=== PATIENT | female | born 1965 | race Caucasian/White ===

== ENCOUNTER 2016-10-10 10:02 | Emergency (ER) | payer BC ==
[~2016-10-10] VITALS: Ht 167.6 cm; Wt 136.2 kg
[~2016-10-10 10:02] MED LIST: ASPI81TA28 PO; ATOR-26 PO; BUPR75TA8 PO; CHOL1000 PO; CYAN10004 PO; FLUT110A INH; HYDR1LOT6 TOP; ISOS60TA25 PO; LISI5TAB PO; LPR25 PO; MAGNTAB4 PO; PANT40TA PO
[2016-10-10 10:21] VITALS: TEMP 37; Ht 167.6 cm; Wt 136.2 kg
--- NOTE | 2016-10-10 11:11 | DIAGNOSTIC IMAGING REPORT ---
LEFT WRIST 5 VIEWS HISTORY: LEFT WRIST PAIN COMPARISON: None. FINDINGS: There is no fracture or dislocation. Mild soft tissue swelling. The scaphoid appears intact. Moderate degenerative changes at the first carpometacarpal joint. IMPRESSION: No fractures. Electronically signed by: Macario Ortiz M.D. 10/10/2016 11:09 AM Dictated Date/Time: 10/10/2016 11:07 AM
[2016-10-10] MEDS ORDERED: FLVHFA220 INH (11:22)
[2016-10-10] MEDS ORDERED: ALBU18002 INH (11:22)
[2016-10-10 12:03] VITALS: BP 128/77; PULSE 70; O2SAT 98
--- NOTE | 2016-10-10 13:16 | EMERGENCY ROOM VISIT NOTE ---
History First contact with patient: 10:44 Chief Complaint: HAND PAIN/INJURY Stated Complaint: LEFT HAND POSSIBLY BROKEN History of Present Illness The patient is a 50 year old female who presents to the Emergency Room with complaints of left wrist pain. The patient reports that she picked up a milk jug a few weeks ago, and has had discomfort since that time. She reports pain along the outer aspect of the wrist. She reports that the pain is now worse. She denies any pain extending into the forearm or hand. Denies any paresthesias or numbness of the hand or fingers. The patient is left-hand dominant, and rates her discomfort an 8 out of 10. Has not contacted her PCP for her current condition. Review of Systems 10 system review was performed and was negative except for pertinent positives and negatives as indicated in history of present illness Past Medical/Surgical History Medical Problems: (1) Asthma, Unspecified (2) Calculus Of Kidney (3) Cholelithiasis Nos (4) Coronary Atherosclerosis Of [place] Coronary Vessel (5) Esophageal Reflux (6) Hyperlipidemia, Unspecified (7) Hypertension Nos (8) Latex Allergy Status (9) Morbid Obesity (10) Obstructive Sleep Apnea (Adult) (Pediatric) (11) Old Myocardial Infarct Surgical Problems: (1) History of cholecystectomy Family History Diabetes mellitus Hypertension Social History Smoking Status: Never Smoker Alcohol Use: none Drug Use: none Marital Status: Housing Status: lives with family Occupation Status: employed Current/Historical Medications Scheduled Albuterol Sulfate (Proair Respiclick), 1 PUFF INH DAILY Aspirin (Aspirin Ec), 81 MG PO DAILY Atorvastatin (Lipitor), 80 MG PO DAILY Bupropion Hcl (Wellbutrin), 75 MG PO DAILY Cholecalciferol (Vitamin D3), 1 TAB PO DAILY Cyanocobalamin (Vitamin B-12 1000 Mcg), 1 TAB PO DAILY Fluticasone Propionate (Flovent Hfa), 1 PUFFS INH BID Lisinopril (Prinivil), 2.5 MG PO DAILY Metoprolol Tartrate (Lopressor), 25 MG PO BID Pantoprazole (Protonix), 40 MG PO DAILY Allergies Coded Allergies: Latex1 -Allergic Contact Dermititis (Unverified Allergy, Unknown, ITCHINESS, 10/10/16) Prochlorperazine (Verified Allergy, Unknown, muscle spasms, 10/10/16) Amoxicillin (Verified Adverse Reaction, Intermediate, SEVERE YEAST INFECTIONS, 10/10/16) Physical Exam Vital Signs Date Time Temp Pulse Resp B/P Pulse Ox O2 Delivery O2 Flow Rate FiO2 10/10/16 12:03 70 18 128/77 98 10/10/16 10:21 37.0 66 18 135/81 97 Room Air Physical Exam CONSTITUTIONAL: Morbidly obese female, alert and oriented X 3 with positive affect. HEENT: Normocephalic, atraumatic. Pupils equal, round and reactive. NECK: Full active range of motion without discomfort. MUSCULOSKELETAL: Examination of the left wrist does not show any obvious edema, ecchymosis or erythema. She is tender over the ulnar aspect of the wrist. Negative anatomic snuffbox tenderness. No focal tenderness over the distal radius or ulna. Flexion and extension of the fingers does not worsen her discomfort. Capillary refill is less than 2 seconds. INTEGUMENTARY: No rash or other significant dermatologic conditions noted. NEUROLOGIC: Left hand and fingers are sensory intact. Medical Decision & Procedures ER Provider Diagnostic Interpretation: My interpretation of left wrist x-rays does not show any acute fractures or dislocations. Moderate first CMC joint osteoarthritic changes are noted. Radiologist report is as follows: LEFT WRIST 5 VIEWS HISTORY: LEFT WRIST PAIN COMPARISON: None. FINDINGS: There is no fracture or dislocation. Mild soft tissue swelling. The scaphoid appears intact. Moderate degenerative changes at the first carpometacarpal joint. IMPRESSION: No fractures. ED Course Patient history and physical exam were performed. Nurse's notes were reviewed. The patient refused any analgesics while in the emergency department. X-rays of the left wrist were normal. A wrist lacer was applied. The patient was encouraged to intermittently apply ice and elevate the wrist for swelling and pain. Tylenol as needed for pain. The patient refused any prescription analgesics. She was instructed to follow-up with orthopedics for further reevaluation and management. The patient was happy with plan of care, voiced understanding of all discharge instructions, and denied any significant pain at the conclusion of my exam. Medical Decision Impression Primary Impression: Left wrist sprain Departure Information Referrals Ame Ly (PCP) Patient Instructions [facility]
[2017-03-02] MEDS ORDERED: CYCL10TA6 PO (10:53)
[2017-03-02] MEDS ORDERED: VENL37.593 PO (10:53)
[2017-03-02] MEDS ORDERED: CHOL2000 PO (10:53)
== END 2016-10-10 12:04 | disposition home or self-care (01) ==
LOC: C.EDB 10:03 → C.EDD 12:04
DX: S63.502A Unspecified sprain of left wrist, initial encounter (principal); X50.0XXA Overexertion from strenuous movement or load, initial encounter; J45.909 Unspecified asthma, uncomplicated; I25.10 Atherosclerotic heart disease of native coronary artery without angina pectoris; K21.9 Gastro-esophageal reflux disease without esophagitis; E78.5 Hyperlipidemia, unspecified; I10 Essential (primary) hypertension; G47.33 Obstructive sleep apnea (adult) (pediatric); I25.2 Old myocardial infarction; Z90.49 Acquired absence of other specified parts of digestive tract; Z79.82 Long term (current) use of aspirin

== ENCOUNTER → 2016-12-29 | Outpatient (CLI) | payer BC ==
[~2016-12-29] MED LIST changes: +ALBU18002 INH; +CHOL2000 PO; +CYCL10TA6 PO; +EFFSR75 PO; -FLUT110A INH; +FLVHFA110 INH; +FLVHFA220 INH; +FLX10 PO; -HYDR1LOT6 TOP; -ISOS60TA25 PO; +LSN25 PO; -MAGNTAB4 PO; +OXYC-57 PO; +VENL37.593 PO
--- NOTE | 2016-12-29 10:26 | DIAGNOSTIC IMAGING REPORT ---
LEFT ANKLE MIN 3 VIEWS ROUTINE CLINICAL HISTORY: Left ankle pain. TRAUMA COMPARISON: None. DISCUSSION: No fractures or dislocations are visualized. There are minor degenerative changes present. There is calcaneal spurring. IMPRESSION: No acute fractures or dislocations identified. Electronically signed by: Nilesh Beltran M.D. 12/29/2016 10:24 AM Dictated Date/Time: 12/29/2016 10:23 AM
--- NOTE | 2016-12-29 11:29 | DIAGNOSTIC IMAGING REPORT ---
LEFT FOOT 3 VIEWS HISTORY: LEFT ANKLE PAIN COMPARISON: None. FINDINGS: There is no fracture or dislocation. Soft tissues are unremarkable. No radiopaque foreign bodies. Plantar and posterior calcaneal spurs. Mild degenerative changes. IMPRESSION: No fractures. Electronically signed by: Macario Ortiz M.D. 12/29/2016 11:28 AM Dictated Date/Time: 12/29/2016 11:27 AM
== END | disposition home or self-care (01) ==
LOC: C.RAD 09:42
PROVIDERS: ATTEND Nurse Practitioner
DX: M25.572 Pain in left ankle and joints of left foot (principal)

== ENCOUNTER → 2017-03-04 | Outpatient (CLI) | payer BC ==
[~2017-03-04] MED LIST changes: -BUPR75TA8 PO; -CHOL1000 PO; -EFFSR75 PO; -FLVHFA110 INH; -FLX10 PO; -LSN25 PO; -OXYC-57 PO
--- NOTE | 2017-03-04 15:47 | DIAGNOSTIC IMAGING REPORT ---
LUMBAR SPINE MIN 4 VIEWS CLINICAL HISTORY: 51 years-old Female presenting with LOW BACK PAIN. TECHNIQUE: Frontal, lateral, bilateral oblique views of the lumbar spine were obtained. COMPARISON: None. FINDINGS: Slight loss of anterior vertebral body height at T11, which may be within the range of normal. Remaining vertebral bodies demonstrate normal height and alignment. No acute fracture or subluxation the limitations of radiography. Minimal osteophytosis noted at L2-3. Mild scoliotic curvature at the thoracolumbar junction. No gross evidence of osseous neural foraminal narrowing. Normal bowel gas pattern. IMPRESSION: 1. No acute osseous injury of the lumbar spine within the limitations of radiography. 2. Minimal degenerative change at L2-3 and mild scoliotic curvature. Electronically signed by: Colten Lerner M.D. 03/04/2017 3:46 PM Dictated Date/Time: 03/04/2017 3:42 PM
== END | disposition home or self-care (01) ==
LOC: C.RDSM 15:26
PROVIDERS: ATTEND Family Medicine
DX: M54.5 Low back pain (principal)

== ENCOUNTER → 2017-03-27 | Outpatient (CLI) | payer BC ==
[2017-03-27 10:04] LABS: HEMATOCRIT 42.4 % (37-47); MEAN CELL VOLUME 89.8 fL (80-100); MEAN CORPUSCULAR HEMOGLOBIN 29.2 pg (25-34); MEAN CORPUSCULAR HGB CONC 32.5 g/dl (32-36); MEAN PLATELET VOLUME 9.9 fL (7.4-10.4); PLATELET COUNT 275 K/uL (130-400); RED BLOOD COUNT 4.72 M/uL (4.2-5.4); WHITE BLOOD COUNT 6.25 K/uL (4.8-10.8)
[2017-03-27 10:34] LABS: CHOLESTEROL/HDL RATIO 1.9
[2017-03-27 10:34] LABS: BLOOD UREA NITROGEN 14 mg/dl (7-18); BUN/CREATININE RATIO 16.2 (10-20); CALCIUM 9.1 mg/dl (8.5-10.1); CARBON DIOXIDE 31 mmol/L (21-32); CHLORIDE 106 mmol/L (98-107); CREATININE 0.86 mg/dl (0.60-1.20); GLUCOSE 91 mg/dl (70-99); POTASSIUM 4.6 mmol/L (3.5-5.1); SODIUM 140 mmol/L (136-145)
[2017-03-27 10:44] LABS: THYROID STIMULATING HORMONE 0.664 uIu/ml (0.300-4.500)
== END | disposition home or self-care (01) ==
LOC: C.LAB 09:06
PROVIDERS: ATTEND Internal Medicine Cardiovascular Disease
DX: E78.5 Hyperlipidemia, unspecified (principal); Z13.220 Encounter for screening for lipoid disorders; R42 Dizziness and giddiness

== ENCOUNTER 2017-07-10 17:38 | Emergency (ER) | payer BC ==
[~2017-07-10] VITALS: Ht 167.6 cm; Wt 134.4 kg
[2017-07-10 17:45] VITALS: Ht 167.6 cm; Wt 134.4 kg
[2017-07-10] MEDS ORDERED: OXYCODONE/ACETAMINOPHEN 5-325 TAB PO STA (17:54)
[2017-07-10] MEDS ORDERED: ONDANSETRON 4MG OD TAB PO ONE (18:00)
[2017-07-10] MEDS ORDERED: EFFSR75 PO (18:36)
[2017-07-10] MEDS ORDERED: FLVHFA110 INH (18:36)
[2017-07-10] MEDS ORDERED: FLX10 PO (18:36)
[2017-07-10] MEDS ORDERED: LSN25 PO (18:36)
[2017-07-10] MEDS ORDERED: OXYC-57 PO (18:45)
[2017-07-10 18:58] VITALS: BP 169/59; PULSE 58; TEMP 36.9; O2SAT 96
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
== END 2017-07-10 19:11 | disposition home or self-care (01) ==
LOC: C.EDB 17:40 → C.EDD 19:11
DX: T23.001A Burn of unspecified degree of right hand, unspecified site, initial encounter (principal); X19.XXXA Contact with other heat and hot substances, initial encounter; I10 Essential (primary) hypertension; E78.5 Hyperlipidemia, unspecified; K21.9 Gastro-esophageal reflux disease without esophagitis; I25.2 Old myocardial infarction; I25.10 Atherosclerotic heart disease of native coronary artery without angina pectoris; J45.909 Unspecified asthma, uncomplicated; G47.33 Obstructive sleep apnea (adult) (pediatric); Z87.442 Personal history of urinary calculi; Z90.49 Acquired absence of other specified parts of digestive tract; Z91.040 Latex allergy status; Z88.1 Allergy status to other antibiotic agents; Z88.8 Allergy status to other drugs, medicaments and biological substances; Z79.82 Long term (current) use of aspirin; Z79.899 Other long term (current) drug therapy

== ENCOUNTER → 2017-09-23 | Day surgery (SDC) | payer BC ==
[2017-09-07 12:10] VITALS: Ht 167.6 cm; Wt 133.6 kg
[~2017-09-23] VITALS: Ht 167.6 cm; Wt 133.6 kg
[~2017-09-23] MED LIST changes: -ATOR-26 PO; -CYCL10TA6 PO; +EFFSR75 PO; +FLVHFA110 INH; -FLVHFA220 INH; +FLX10 PO; +LIDOCAINE HCL 2% 2 ML VIAL (20MG/ML) ONE; +LISI-729 PO; -LISI5TAB PO; +MULT-920 PO; -PANT40TA PO; +PROPOFOL IV EMULSION 10 MG/ML 20 ML VIAL IV ONE; +SODIUM CHLORIDE 0.9% 500ML 500 ML IV ONE; +VALA1TAB2 PO; -VENL37.593 PO
--- NOTE | 2017-09-23 15:15 | GI REPORT ---
Procedure Date: 09/23/2017 2:02 PM Procedure: Colonoscopy Indications: Family history of colonic polyps in a first-degree relative Medicines: Propofol per Anesthesia Complications: No immediate complications. Estimated blood loss: Minimal. Estimated Blood Loss: Estimated blood loss was minimal. Procedure: Pre-Anesthesia Assessment: - Prior to the procedure, a History and Physical was performed, and patient medications and allergies were reviewed. The patient's tolerance of previous anesthesia was also reviewed. The risks and benefits of the procedure and the sedation options and risks were discussed with the patient. All questions were answered, and informed consent was obtained. Prior Anticoagulants: The patient has taken no previous anticoagulant or antiplatelet agents. ASA Grade Assessment: III - A patient with severe systemic disease. After reviewing the risks and benefits, the patient was deemed in satisfactory condition to undergo the procedure. After I obtained informed consent, the scope was passed under direct vision. Throughout the procedure, the patient's blood pressure, pulse, and oxygen saturations were monitored continuously. The scope was introduced through the anus and advanced to the terminal ileum, with identification of the appendiceal orifice and IC valve. The colonoscopy was performed without difficulty. The patient tolerated the procedure well. The quality of the bowel preparation was good. Findings: The perianal and digital rectal examinations were normal. Pertinent negatives include normal sphincter tone, no palpable rectal lesions and no anal lesion or abnormality was detected. A 1 mm polyp was found in the hepatic flexure. The polyp was sessile. The polyp was removed with a cold biopsy forceps. Resection and retrieval were complete. Estimated blood loss was minimal. Verification of patient identification for the specimen was done by the physician and r&d lab technician using the patient's name and medical record number. A 3 mm polyp was found in the distal transverse colon. The polyp was sessile. The polyp was removed with a cold biopsy forceps. Resection and retrieval were complete. Estimated blood loss was minimal. Verification of patient identification for the specimen was done by the physician and r&d lab technician using the patient's name and medical record number. The exam was otherwise without abnormality. The retroflexed view of the distal rectum and anal verge was normal and showed no anal or rectal abnormalities. The terminal ileum appeared normal. The exam was otherwise without abnormality. Impression: - One 1 mm polyp at the hepatic flexure, removed with a cold biopsy forceps. Resected and retrieved. - One 3 mm polyp in the distal transverse colon, removed with a cold biopsy forceps. Resected and retrieved. - The examination was otherwise normal. - The distal rectum and anal verge are normal on retroflexion view. - The examined portion of the ileum was normal. - The examination was otherwise normal. Recommendation: - Discharge patient to home (ambulatory). - Resume regular diet. - Continue present medications. - Await pathology results. - Repeat colonoscopy for surveillance based on pathology results. - Return to referring physician as previously scheduled. MD Lionel Ramirez MD 09/23/2017 3:14:28 PM This report has been signed electronically. Note Initiated On: 09/23/2017 2:02 PM I attest to the content of the Intraoperative Record and orders documented therein, exceptions below
--- NOTE | 2017-09-23 15:23 | Endo History and Physical ---
History & Physical Date of Service: Sep 23, 2017. Chief Complaint: screening Referring Physician: Sydni DEL TORO History of Present Illness colon- screen + FH polyps Past Medical History Reflux, Sleep Apnea, Hypertension, Depression, [place] Past Surgical History Hx Cardiac Surgery: Yes (HEART CATH, NO STENTS) Hx Internal Defibrillator: No Hx Pacemaker: No Hx Abdominal Surgery: Yes (DEDRICK, (SPINAL)) Hx of Implantable Prosthesis: No Hx Post-Op Nausea and Vomiting: Yes (S/P DEDRICK) Hx Cancer Surgery: No Hx Thoracic Surgery: No Hx Orthopedic: No Hx Urinary Tract Surgery: No Family History None Social History Smoking Status: Never Smoker Hx Substance Use: No Hx Alcohol Use: No Allergies Coded Allergies: Latex1 -Allergic Contact Dermititis (Verified Allergy, Unknown, ITCHINESS , 09/23/17) Metronidazole (Verified Allergy, Unknown, PT DOESN'T REMEMBER REACTION, ) Prochlorperazine (Verified Allergy, Unknown, muscle spasms, 09/07/17) Amoxicillin (Verified Adverse Reaction, Intermediate, SEVERE YEAST INFECTIONS, 09/07/17) Uncoded Allergies: METAL (Adverse Reaction, Unknown, SKIN IRRITATION WITH EXTENDED USE, ) Current Medications Reported Home Medications Medications Dose Route/Sig Max Daily Dose Days Date Category Zestril (Lisinopril) 5 Mg Tab 2.5 Mg PO DAILY 09/23/17 Reported Airborne (Multiple Vitamins W/ Minerals) 1 Tab Tab 2 Tab PO BID 09/07/17 Reported Valtrex (Valacyclovir Hcl) 1 Gm Tab 1,000 Mg PO DAILY 09/07/17 Reported Flovent Hfa (Fluticasone Propionate) 120 Puffs/09351 Mcg Aero 1 Puff INH QAM 07/10/17 Reported Cyclobenzaprine HCl 10 Mg Tab 10 Mg PO BID PRN 07/10/17 Reported Effexor Extended Rel (Venlafaxine Hcl) 75 Mg Capcr 75 Mg PO QAM 07/10/17 Reported Vitamin D3 (Cholecalciferol) 2,000 Unit Cap 2,000 Inter.unit PO QAM 03/02/17 Reported Proair Respiclick (Albuterol Sulfate) 108 Mcg/Act Aer 1 Puff INH Q4H PRN 10/10/16 Reported Vitamin B-12 1000 Mcg (Cyanocobalamin) 1,000 Mcg Tab 5,000 Mcg PO QAM 06/14/15 Reported Lopressor (Metoprolol Tartrate) 25 Mg Tab 25 Mg PO BID 02/02/14 Reported Aspirin Ec (Aspirin) 81 Mg Tab 81 Mg PO QAM 02/02/14 Reported Vital Signs Weight (Kilograms): 133.64 Height (Feet): 5 Height (Inches): 6 Date Time Temp Pulse Resp B/P (MAP) Pulse Ox O2 Delivery O2 Flow Rate FiO2 09/23/17 14:07 36.6 56 20 158/82 (107) 96 Room Air Physical Exam General Appearance: WD/WN, no apparent distress Respiratory/Chest: Auscultation: breath sounds normal Cardiovascular: Heart Auscultation: RRR Abdomen: Bowel Sounds: normal Inspection & Palpation: soft, non-distended, no tenderness, guarding & rebound Assessment and Plan 1) colonoscopy for screening
--- NOTE | 2017-09-23 15:25 | Anesthesiology Progress Note ---
Anesthesia Post Op Note Date & Time Sep 23, 2017 at 15:10 Vital Signs Pain Intensity: 0 Vital Signs Past 12 Hours Date Time Temp Pulse Resp B/P (MAP) Pulse Ox O2 Delivery O2 Flow Rate FiO2 09/23/17 14:07 36.6 56 20 158/82 (107) 96 Room Air Notes Mental Status: alert / awake / arousable, participated in evaluation Pt Amnestic to Procedure: Yes Nausea / Vomiting: adequately controlled Pain: adequately controlled Airway Patency, RR, SpO2: stable & adequate BP & HR: stable & adequate Hydration State: stable & adequate Anesthetic Complications: no major complications apparent
--- NOTE | 2017-09-23 15:25 | Discharge Instructions ---
Endoscopy Patient Instructions Date / Procedure(s) Performed Sep 23, 2017. Colonoscopy Allergy Information Coded Allergies: Latex1 -Allergic Contact Dermititis (Verified Allergy, Unknown, ITCHINESS , 09/23/17) Metronidazole (Verified Allergy, Unknown, PT DOESN'T REMEMBER REACTION, ) Prochlorperazine (Verified Allergy, Unknown, muscle spasms, 09/07/17) Amoxicillin (Verified Adverse Reaction, Intermediate, SEVERE YEAST INFECTIONS, 09/07/17) Uncoded Allergies: METAL (Adverse Reaction, Unknown, SKIN IRRITATION WITH EXTENDED USE, ) Discharge Date / Findings Sep 23, 2017. small polyps removed Medication Instructions Stopped Medication(s): stopped ASA Thursday Restart Stopped Medication(s): Reported Home Medications Medications Dose Route/Sig Max Daily Dose Days Date Category Zestril (Lisinopril) 5 Mg Tab 2.5 Mg PO DAILY 09/23/17 Reported Airborne (Multiple Vitamins W/ Minerals) 1 Tab Tab 2 Tab PO BID 09/07/17 Reported Valtrex (Valacyclovir Hcl) 1 Gm Tab 1,000 Mg PO DAILY 09/07/17 Reported Flovent Hfa (Fluticasone Propionate) 120 Puffs/29496 Mcg Aero 1 Puff INH QAM 07/10/17 Reported Cyclobenzaprine HCl 10 Mg Tab 10 Mg PO BID PRN 07/10/17 Reported Effexor Extended Rel (Venlafaxine Hcl) 75 Mg Capcr 75 Mg PO QAM 07/10/17 Reported Vitamin D3 (Cholecalciferol) 2,000 Unit Cap 2,000 Inter.unit PO QAM 03/02/17 Reported Proair Respiclick (Albuterol Sulfate) 108 Mcg/Act Aer 1 Puff INH Q4H PRN 10/10/16 Reported Vitamin B-12 1000 Mcg (Cyanocobalamin) 1,000 Mcg Tab 5,000 Mcg PO QAM 06/14/15 Reported Lopressor (Metoprolol Tartrate) 25 Mg Tab 25 Mg PO BID 02/02/14 Reported Aspirin Ec (Aspirin) 81 Mg Tab 81 Mg PO QAM 02/02/14 Reported Reported Home Medications Medications Dose Route/Sig Max Daily Dose Days Date Category Zestril (Lisinopril) 5 Mg Tab 2.5 Mg PO DAILY 09/23/17 Reported Airborne (Multiple Vitamins W/ Minerals) 1 Tab Tab 2 Tab PO BID 09/07/17 Reported Valtrex (Valacyclovir Hcl) 1 Gm Tab 1,000 Mg PO DAILY 09/07/17 Reported Flovent Hfa (Fluticasone Propionate) 120 Puffs/46521 Mcg Aero 1 Puff INH QAM 07/10/17 Reported Cyclobenzaprine HCl 10 Mg Tab 10 Mg PO BID PRN 07/10/17 Reported Effexor Extended Rel (Venlafaxine Hcl) 75 Mg Capcr 75 Mg PO QAM 07/10/17 Reported Vitamin D3 (Cholecalciferol) 2,000 Unit Cap 2,000 Inter.unit PO QAM 03/02/17 Reported Proair Respiclick (Albuterol Sulfate) 108 Mcg/Act Aer 1 Puff INH Q4H PRN 10/10/16 Reported Vitamin B-12 1000 Mcg (Cyanocobalamin) 1,000 Mcg Tab 5,000 Mcg PO QAM 06/14/15 Reported Lopressor (Metoprolol Tartrate) 25 Mg Tab 25 Mg PO BID 02/02/14 Reported Aspirin Ec (Aspirin) 81 Mg Tab 81 Mg PO QAM 02/02/14 Reported Provider Instructions Activity Restrictions - No exercising or heavy lifting for 24 hours. - Do not drink alcohol the day of the procedure. - Do not drive a car or operate machinery until the day after the procedure. - Do not make any important decisions or sign important papers in 24 hours after the procedure. Following Day: - Return to full activity which may include returning to work/school. Diet Start your diet with liquids and light foods (jello, soup, juice, toast). Then eat your usual diet if not nauseated. Treatment For Common After Affects For mild abdominal pain, bloating, or excessive gas: - Rest - Eat lightly - Lie on right side Follow-Up Information Follow-up with Sydni DEL TORO as scheduled Anesthesia Information What You Should Know You have had a procedure that required some medicine to reduce anxiety and discomfort. This treatment is called moderate sedation. After receiving the treatment, you may be sleepy, but you will be able to breathe on your own. The effects of the treatment may last for several hours. Follow these instructions along with Activity/Diet recommendations noted above: * Do NOT do anything where dizziness or clumsiness would be dangerous. * Rest quietly at home today, then you can be up and about tomorrow. * Have a responsible person stay with you the rest of today. * You may have had an I.V. today. If so, you may take the dressing off later today. Recommendations Call your doctor if: * Trouble breathing * Continuous vomiting for more than 24 hours * Temperature above 101 degrees * Severe abdominal pain or bloating * Pain not relieved by pain medicine ordered * There is increased drainage or redness from any incision * A large amount of rectal bleeding greater than 2-3 tablespoons. (If you had a polyp/s removed or have hemorrhoids, a small amount of blood - from the rectum is to be expected.) * You have any unanswered questions or concerns. IN THE EVENT OF A SERIOUS EMERGENCY, GO TO THE NEAREST EMERGENCY ROOM Your discharge instructions were prepared by provider Lionel Harris. Patient Instructions Signature Page Ester Farias Patient (or Guardian) Signature/Date: I have read and understand the instructions given to me by my caregivers. Caregiver/RN/Doctor Signature/Date: The above-named patient and/or guardian has received patient instructions on this date. + Original Patient Signature Page (only) stays with chart. Please make copy for patient.
[2017-09-23 15:34] VITALS: BP 135/84; PULSE 55; O2SAT 100
== END | disposition home or self-care (01) ==
LOC: C.GI 13:39
PROVIDERS: ATTEND Internal Medicine Gastroenterology
DX: Z12.11 Encounter for screening for malignant neoplasm of colon (principal); D12.3 Benign neoplasm of transverse colon; Z83.71 Family history of colonic polyps; J45.909 Unspecified asthma, uncomplicated; G47.33 Obstructive sleep apnea (adult) (pediatric); I10 Essential (primary) hypertension; Z91.040 Latex allergy status; F41.9 Anxiety disorder, unspecified; Z88.0 Allergy status to penicillin; Z88.1 Allergy status to other antibiotic agents; Z90.49 Acquired absence of other specified parts of digestive tract; E66.01 Morbid (severe) obesity due to excess calories; Z68.42 Body mass index [BMI] 45.0-49.9, adult; Z79.82 Long term (current) use of aspirin; Z79.899 Other long term (current) drug therapy

== ENCOUNTER 2022-08-26 14:24 | Inpatient (IN) ==
[2022-08-26] MEDS ORDERED: MoRPHine SULFATE 4 MG/ML 1 ML CARP\\VIAL IV STA ×2 (14:47→18:18)
[2022-08-26] MEDS ORDERED: ONDANSETRON INJ 2 MG/ML 2 ML VIAL IV STA (14:47)
[2022-08-26] MEDS ORDERED: SODIUM CHLORIDE 0.9% 1000ML 1,000 ML IV STA (14:47)
--- NOTE | 2022-08-26 15:31 | XRay Report ---
SINGLE VIEW CHEST CLINICAL HISTORY: Atypical chest pain. FINDINGS: An AP, portable, upright chest radiograph is compared to study dated 06/27/2022. The cardiom ediastinal silhouette is unremarkable. The lungs and pleural spaces are clear. No pneumothorax is see n. The bony thorax is grossly intact. IMPRESSION: No active disease in the chest. ACT 112: Negative or not required by law. Electronically signed by: Fernandez Allen M.D. 08/26/2022 3:29 PM
[2022-08-26 15:36] LABS: Basophils # (auto) 0.03 K/uL (0-0.2); Basophils % (auto) 0.3 %; Eosinophils # (auto) 0.03 K/uL (0-0.50); Eosinophils % (auto) 0.3 %; Hematocrit (blood only) 46.4 % (34.1-44.9); Hemoglobin 15.7 g/dl (12.0-16.0); Immature Granulocytes # (auto) 0.03 K/uL (0.00-0.02); Immature Granulocytes % (auto) 0.3 %; Lymphocytes # (auto) 1.25 K/uL (1.2-3.4); Lymphocytes % (auto) 12.6 %; Mean Corpuscular Hemoglobin 29.3 pg (25.0-34.0); Mean Corpuscular Hgb Conc 33.8 g/dL (32.0-36.0); Mean Corpuscular Volume 86.6 fL (80.0-100.0); Mean Platelet Volume 9.1 fL (9.4-12.3); Monocytes # (auto) 0.51 K/uL (0.24-0.82); Monocytes % (auto) 5.2 %; Neutrophils # (auto) 8.04 K/uL (1.4-6.5); Neutrophils % (auto) 81.3 %; Platelet Count 263 K/uL (130-400); RDW Coefficient of Variation 13.5 % (11.5-14.5); RDW Standard Deviation 42.7 fL (36.4-46.3); Red Blood Count 5.36 M/uL (3.93-5.22); White Blood Count 9.89 K/ul (4.8-10.8)
[2022-08-26 16:02] LABS: Troponin I High Sensitivity 4.6 pg/ml (0-14)
[2022-08-26 16:06] LABS: Albumin Globulin Ratio 1.1 (0.9-2); Albumin Level 3.9 gm/dl (3.4-5.0); BUN Creatinine Ratio 27.3 (10-20); Bilirubin,Total 0.5 mg/dl (0.2-1.0); Calcium 9.5 mg/dl (8.5-10.1); Est GFR (African American) 114.5 ml/min; Est GFR (Non-African American) 98.8 ml/min; Globulin 3.6 gm/dl (2.5-4.0); Potassium 4.6 mmol/L (3.5-5.1); Total Protein 7.5 gm/dl (6.0-8.3)
--- NOTE | 2022-08-26 16:30 | Electrocardiogram Report ---
Test Reason : Blood Pressure : / mmHG Vent. Rate : 069 BPM Atrial Rate : 069 BPM P-R Int : 160 ms QRS Dur : 070 ms QT Int : 372 ms P-R-T Axes : 030 009 048 degrees QTc Int : 398 ms Normal sinus rhythm Cannot rule out Septal infarct , age undetermined Abnormal ECG When compared with ECG of 08-FEB-2021 11:12, No significant change was found Confirmed by Robbie Valladares ([id number]) on 08/26/2022 4:29:47 PM Referred By: REFERRED SELF Confirmed By:Robbie Valladares
[2022-08-26] MEDS ORDERED: OPTIRAY 320 500ml IV ONE (16:51)
--- NOTE | 2022-08-26 17:14 | CT Scan Report ---
CT OF THE ABDOMEN AND PELVIS WITH CONTRAST CLINICAL HISTORY: Left-sided abdominal pain. COMPARISON STUDY: CT of the abdomen and pelvis September 29, 2019. TECHNIQUE: Following IV administration of 114 mL of Optiray, axial images of the abdomen and pelvis w ere obtained from the lung bases to the proximal femurs. Images were reviewed in the axial, sagittal, and coronal planes. IV contrast was administered without complication. Automated exposure control w as utilized for the study. A dose lowering technique was utilized adhering to the principles of JULIANE lBand. CT DOSE: 2001.74 mGy.cm FINDINGS: Lung bases are unremarkable. No pneumatosis, free air or portal venous gas is present. Ther e is no biliary ductal dilatation status post cholecystectomy. Note is made of moderate stranding and a small amount of fluid adjacent to the proximal duodenum. There is no extraluminal gas or fluid col lection. Spleen, adrenal glands and kidneys are unremarkable with the exception of a 1.2 cm left vale l cyst. No hydronephrosis. There is no abdominal or pelvic lymphadenopathy. Sigmoid diverticulosis is noted without evidence for acute diverticulitis. Moderate wall thickening with adjacent stranding in volving the mid to distal transverse colon, splenic flexure and proximal to mid descending colon is a gain noted. Similar findings were shown on CT of September 29, 2019. There is no abscess. There is no f ree air. No evidence for a bowel obstruction. A moderate amount stool within the colon and rectum is present. The major vasculature is patent. IMPRESSION: 1. Findings consistent with a left-sided colitis, similar to CT of September 29, 2019. Although nonspec ific, the appearance raises the possibility of ischemic colitis. 2. Fluid and stranding adjacent to the proximal duodenum. This favors duodenitis/peptic ulcer disease . No free air. No extraluminal gas. 3. No bowel obstruction. Moderate amount of stool within the colon and rectum. ACT 112: Negative or not required by law. Electronically signed by: Hank Acharya M.D. 08/26/2022 5:11 PM
[2022-08-26] MEDS ORDERED: PANTOprazole 40 MG TAB PO STA (17:32)
[2022-08-26] MEDS ORDERED: FAMOTIDINE 20 MG in SYRINGE 3 ML IV STA (17:32)
[2022-08-26] MEDS ORDERED: DICYCLOMINE HCL 20 MG TAB PO STA (18:18)
[2022-08-26 18:41] LABS: Appearance Urine Clear (Clear); Bilirubin Urine Negative (Negative); Blood Urine Negative (Negative); Color Urine Yellow; Glucose Urine UA Negative (Negative); Ketones Urine Negative (Negative); Leukocyte Esterase Urine Negative (Negative); Nitrite Urine Negative (Negative); Protein Urine Negative (Negative); Specific Gravity Urine 1.045 (1.000-1.030); Urobilinogen Urine Negative (Negative)
--- NOTE | 2022-08-26 18:41 | Emergency Department Note ---
Impression & Plan Colitis, Peptic ulcer of duodenum, Morbid obesity with BMI of 50.0-59.9, adult ED Provider Note CHIEF COMPLAINT: Abdominal pain HISTORY OF PRESENT ILLNESS: This 56-year-old female with a history of morbid obesity, hypertension, hyperlipidemia patient presents to the emergency department with complaints of sudden onset left-sided abdominal pain today at approximately 12 PM. Patient states it feels as though the pain is shooting throughout her body. She is having difficulty figuring out exactly where the pain starts. She is nauseous and did vomit in the ER x1 prior to my evaluation. She has not had a bowel movement in several days. Prior to that the patient states she has had some hard, small bowel movements. She denies any blood in her stools or in her emesis. She has not had a fever recently. She denies any pain with urination or pain in the back. She is concerned that she may be having a heart attack. She did not take any medicines prior to arrival to help alleviate the discomfort. Patient states she still has her appendix but is status postcholecystectomy REVIEW OF SYSTEMS: See above ALLERGIES: see below MEDICATIONS: see below PMH: see below SOCIAL HISTORY: see below DDx:Appendicitis, diverticulitis, UTI, obstruction, mesenteric ischemia, aortic pathology, inflammatory bowel disease, renal colic, PUD, pancreatitis, biliary pathology, hernia, volvulus, constipation, as well as other pathologies. PHYSICAL EXAM: Vital signs reviewed. General: Well-appearing 56-year-old female, in no significant distress. HEENT: No scleral icterus, PERRLA, neck supple. Atraumatic. Cardiovascular: Regular rate and rhythm, no extra sounds. Pulmonary: Clear to auscultation bilaterally, normal work of breathing. Abdomen: Soft, morbidly obese, diffusely tender without specific rebound or guarding, nondistended, positive bowel sounds. Exam is limited by body habitus Musculoskeletal: Atraumatic, no peripheral edema. Neurologic: Patient awake alert and oriented x 3, speech is clear Skin: Warm, dry, no rash EMERGENCY DEPARTMENT COURSE/MDM: External records were reviewed. IV access was obtained and laboratory work was drawn. Patient was placed on the library monitor. Patient was hydrated with normal saline solution, given IV morphine and Zofran for her discomfort. CT imaging of the abdomen pelvis was performed and reveals a likely peptic ulcer at the duodenum with left-sided colitis, possibility of ischemic colitis. Patient was given 20 mg of IV Pepcid, 40 mg of p.o. Protonix. Patient did have an episode of emesis and subsequent bowel movem ent while lying in bed. Patient was cleansed by nursing staff and a Hemoccult was performed and was reportedly negative. She did request additional pain medication was given 4 mg of IV morphine. A second liter of normal saline solution was hung by me at 1915. A lactate was ordered and is 2.6. Patient's case was discussed with the hospitalist service who will be evaluating the patient for admission and further management. Patient and were informed of the findings at the bedside and agreed. Patient stated she is followed by gastroenterology at [facility]. MONITORING: An order for cardiac monitoring was placed and the patient is noted to be in a normal sinus rhythm at 72 beats per minute. RADIOLOGY: Chest x-ray to my interpretation reveals no evidence of focal lung consolidation or failure. CT imaging of the abdomen and pelvis is read as below by radiology, evidence of left-sided colitis and possible peptic ulcer at the duodenum. EKG: To my interpretation reveals a normal sinus rhythm at 69 bpm. Likely previous septal infarct. QTC is 398. Normal ST segments. Normal T waves DISPOSITION: Discharge Past Med/Surg History Medical History Bariatric surgery status UPCOMING EGD D/T FUTURE PLANNING OF BARIATRIC SX Borderline anemia Depression Family history of reaction to anesthesia N/V WITH GRANDMOTHER, SISTER, MOTHER GERD (gastroesophageal reflux disease) STATIN CAUSES THIS PER PT History of colon polyps ? VT (myocardial infarction) 2013 / HEART CATH/NO FINDINGS Morbid obesity Nausea and vomiting after administration of anesthetic agent AFTER GALLBLADDER SX Obstructive sleep apnea, adult can't tolerate cpap/upcoming new assessment planned jun 26 2022 Surgical History H/O section History of cardiac cath [place]...2014/[place] - NO STENT(S) History of cholecystectomy Family History Mother Dementia Family/Other Obstructive sleep apnea Father Myasthenia gravis Other Family history of colonic polyps Social History Smoking Status: Never smoker Hx Alcohol Use: No Hx Substance Use: No Preferred Language: Danish Communication Ability: Effective Laundry Agent Required: No Beliefs That Will Affect Care: None Current Living Situation: Family Current Living Situation Comment: AND 4 ADULT CHILDREN Other Information That Helps Us Care for You: No Feels Safe at Home: Yes Safety Concerns: Feels Safe At This Time Assistive Devices: None and Hospital Bed Allergies Allergies Allergy/AdvReac Type Severity Reaction Status Date / Time latex Allergy Mild ITCHINESS Verified 08/26/22 16:45 adhesive tape Allergy Unknown SKIN Verified 08/26/22 16:45 IRRITATION metronidazole Allergy Unknown PT DOESN'T Verified 08/26/22 16:45 REMEMBER REACTION prochlorperazine Allergy Unknown muscle Verified 08/26/22 16:45 spasms amoxicillin AdvReac Intermediate SEVERE Verified 08/26/22 16:45 YEAST INFECTIONS METAL Allergy Unknown SKIN Uncoded 08/26/22 16:45 IRRITATION WITH EXTENDED USE Home Meds Home Medications Medication Instructions Recorded Confirmed cholecalciferol (vitamin D3) 25 1,000 units PO HS 05/03/19 08/26/22 mcg (1,000 unit) capsule cyanocobalamin (vitamin B-12) 1,000 mcg PO HS 05/03/19 08/26/22 1,000 mcg tablet fluticasone propionate 110 1 puffs inhalation BID PRN Wheezing 05/03/19 08/26/22 mcg/actuation HFA aerosol inhaler albuterol sulfate 90 mcg/actuation 1 - 2 puff inhalation Q4H PRN 09/29/19 08/26/22 aerosol inhaler Shortness Of Breath multivitamin 1 tab PO QAM 09/29/19 08/26/22 aspirin 81 mg tablet,delayed 81 mg PO QAM 02/08/21 08/26/22 release atorvastatin 40 mg tablet 40 mg PO QAM 02/08/21 08/26/22 benzonatate 100 mg capsule 100 mg PO UD PRN Cough 02/08/21 08/26/22 cyclobenzaprine 10 mg tablet 10 mg PO DAILY PRN Muscle Spasm 02/08/21 08/26/22 fluticasone propionate 44 1 puff inhalation BID 02/08/21 08/26/22 mcg/actuation HFA aerosol inhaler (Flovent HFA) lisinopril 2.5 mg tablet 2.5 mg PO QAM 02/08/21 08/26/22 rosuvastatin 10 mg tablet (Crestor) 10 mg PO QAM 02/08/21 08/26/22 venlafaxine 150 mg 150 mg PO QAM 02/08/21 08/26/22 capsule,extended release 24 hr (Effexor XR) zinc sulfate 50 mg zinc (220 mg) 0 mg PO HS 02/08/21 08/26/22 tablet liraglutide (weight loss) 3 mg/0.5 2.4 mg subcut DAILY 08/26/22 08/26/22 mL (18 mg/3 mL) subcut pen injector (Saxenda) Previous Rx's Medication Instructions Recorded carvedilol 6.25 mg tablet 6.25 mg PO BID #180 tabs 11/29/19 oseltamivir 75 mg capsule (Tamiflu) 75 mg PO BID #4 caps 08/29/22 Results & Data (ED) Vital Signs Vital Signs - 24 hr 08/26/22 14:31 08/26/22 17:00 08/26/22 17:00 Temperature 37.1 C Temperature Source Oral Pulse Rate 72 Pulse Rate [Right Finger] 77 Pulse Rhythm Regular Pulse Rhythm [Right Finger] Regular Pulse Strength Normal Pulse Strength [Right Finger] Normal Respiratory Rate 18 18 Respiratory Effort / Characteristics Non-Labored Non-Labored Respiratory Depth Normal Normal Respiratory Pattern Regular Regular Blood Pressure 135/45 L Blood Pressure [Right Arm] 141/60 H Blood Pressure Mean 75 Blood Pressure Mean [Right Arm] 87 Blood Pressure Position Lying Blood Pressure Position [Right Arm] Lying Pulse Oximetry 94 97 Oxygen Delivery Method Room Air Room Air Room Air Sepsis Recent Fever Within 48 Hours No Sepsis New/Unexplained Change in Mental Status N/A Sepsis Action Taken by Nursing No Action Required Home Medications Current Medication List: was personally reviewed by me Laboratory Data Attestation: I reviewed the patient's lab results. 08/26/22 15:25 08/26/22 15:25 Lab Results 08/26/22 08/26/22 08/26/22 Range/Units 15:25 15:25 15:25 WBC 9.89 (4.8-10.8) K/ul RBC 5.36 H (3.93-5.22) M/uL Hgb 15.7 (12.0-16.0) g/dl Hct 46.4 H (34.1-44.9) % MCV 86.6 (80.0-100.0) fL MCH 29.3 (25.0-34.0) pg MCHC 33.8 (32.0-36.0) g/dL RDW Std Deviation 42.7 (36.4-46.3) fL RDW Coeff of Neil 13.5 (11.5-14.5) % Plt Count 263 (130-400) K/uL MPV 9.1 L (9.4-12.3) fL Immature Gran % (Auto) 0.3 % Neut % (Auto) 81.3 % Lymph % (Auto) 12.6 % [place] % (Auto) 5.2 % Eos % (Auto) 0.3 % Baso % (Auto) 0.3 % Neut # (Auto) 8.04 H (1.4-6.5) K/uL Lymph # (Auto) 1.25 (1.2-3.4) K/uL [place] # (Auto) 0.51 (0.24-0.82) K/uL Eos # (Auto) 0.03 (0-0.50) K/uL Baso # (Auto) 0.03 (0-0.2) K/uL Immature Gran # (Auto) 0.03 H (0.00-0.02) K/uL ESR (0-30) mm/hr Sodium 135 L (136-145) mmol/L Potassium 4.6 (3.5-5.1) mmol/L Chloride 105 (98-107) mmol/L Carbon Dioxide 22 (21-32) mmol/L Anion Gap 8 (3-11) BUN 18 (6-23) mg/dl Creatinine 0.66 (0.6-1.2) mg/dl Est Cr Clr Drug Dosing 141.0 ml/min Est GFR ( Amer) 114.5 ml/min Est GFR (Non-Af Amer) 98.8 ml/min BUN/Creatinine Ratio 27.3 H (10-20) Glucose 115 H (70-99(Fasting)) mg/dl Lactate (0.4-2.0) mmol/L Calcium 9.5 (8.5-10.1) mg/dl Magnesium 2.6 H (1.7-2.4) mg/dl Total Bilirubin 0.5 (0.2-1.0) mg/dl AST 25 (13-39) U/L ALT 21 (7-52) U/L Alkaline Phosphatase 106 H (34-104) U/L Troponin I High Sens 4.6 (0-14) pg/ml C-Reactive Protein (0-0.5) mg/dl Total Protein 7.5 (6.0-8.3) gm/dl Albumin 3.9 (3.4-5.0) gm/dl Globulin 3.6 (2.5-4.0) gm/dl Albumin/Globulin Ratio 1.1 (0.9-2) Lipase 37 (11-82) U/L Procalcitonin (0-0.5) ng/ml Urine Color Urine Appearance (Clear) Urine pH (4.5-7.5) Ur Specific [place] (1.000-1.030) Urine Protein (Negative) Urine Glucose (UA) (Negative) Urine Ketones (Negative) Urine Blood (Negative) Urine Nitrite (Negative) Urine Bilirubin (Negative) Urine Urobilinogen (Negative) Ur Leukocyte Esterase (Negative) Stool Occult Bld Scrn (Negative) Stool Calprotectin mcg/g Stl C. cayetanensis PCR (NotDetected) Stool Rotavirus A PCR (NotDetected) Stl Adenov F 40/41 PCR (NotDetected) Stool Astrovirus (PCR) (NotDetected) Stool Campylobacter PCR (NotDetected) Stool Cryptosporidium PCR (NotDetected) Stl E.coli Shiga Tox PCR (NotDetected) Stl Enterotoxigenic E PCR (NotDetected) Stool EPEC (PCR) (NotDetected) Stool EAEC (PCR) (NotDetected) Stl E. histolytica PCR (NotDetected) Stool Giardia Lamblia PCR (NotDetected) Stool Salmonella PCR (NotDetected) Stool Sapovirus (PCR) (NotDetected) Stl P. shigelloides PCR (NotDetected) Stl Shigella/EIEC PCR (NotDetected) St Y.enterocolitica PCR (NotDetected) Stool Vibrio (PCR) (NotDetected) Stl Vibrio cholerae PCR (NotDetected) Stl Norovirus GI/GII PCR (NotDetected) SARS-CoV-2 (PCR) (Negative) Influenza Type A (PCR) (Neg) Influenza Type B (PCR) (Neg) RSV (RT-PCR) (Neg) 08/26/22 08/26/22 08/26/22 Range/Units 15:25 15:25 17:56 WBC (4.8-10.8) K/ul RBC (3.93-5.22) M/uL Hgb (12.0-16.0) g/dl Hct (34.1-44.9) % MCV (80.0-100.0) fL MCH (25.0-34.0) pg MCHC (32.0-36.0) g/dL RDW Std Deviation (36.4-46.3) fL RDW Coeff of Neil (11.5-14.5) % Plt Count (130-400) K/uL MPV (9.4-12.3) fL Immature Gran % (Auto) % Neut % (Auto) % Lymph % (Auto) % [place] % (Auto) % Eos % (Auto) % Baso % (Auto) % Neut # (Auto) (1.4-6.5) K/uL Lymph # (Auto) (1.2-3.4) K/uL [place] # (Auto) (0.24-0.82) K/uL Eos # (Auto) (0-0.50) K/uL Baso # (Auto) (0-0.2) K/uL Immature Gran # (Auto) (0.00-0.02) K/uL ESR (0-30) mm/hr Sodium (136-145) mmol/L Potassium (3.5-5.1) mmol/L Chloride (98-107) mmol/L Carbon Dioxide (21-32) mmol/L Anion Gap (3-11) BUN (6-23) mg/dl Creatinine (0.6-1.2) mg/dl Est Cr Clr Drug Dosing ml/min Est GFR ( Amer) ml/min Est GFR (Non-Af Amer) ml/min BUN/Creatinine Ratio (10-20) Glucose (70-99(Fasting)) mg/dl Lactate (0.4-2.0) mmol/L Calcium (8.5-10.1) mg/dl Magnesium (1.7-2.4) mg/dl Total Bilirubin (0.2-1.0) mg/dl AST (13-39) U/L ALT (7-52) U/L Alkaline Phosphatase (34-104) U/L Troponin I High Sens (0-14) pg/ml C-Reactive Protein 3.06 H (0-0.5) mg/dl Total Protein (6.0-8.3) gm/dl Albumin (3.4-5.0) gm/dl Globulin (2.5-4.0) gm/dl Albumin/Globulin Ratio (0.9-2) Lipase (11-82) U/L Procalcitonin < 0.05 (0-0.5) ng/ml Urine Color Yellow Urine Appearance Clear (Clear) Urine pH 5.0 (4.5-7.5) Ur Specific [place] 1.045 H (1.000-1.030) Urine Protein Negative (Negative) Urine Glucose (UA) Negative (Negative) Urine Ketones Negative (Negative) Urine Blood Negative (Negative) Urine Nitrite Negative (Negative) Urine Bilirubin Negative (Negative) Urine Urobilinogen Negative (Negative) Ur Leukocyte Esterase Negative (Negative) Stool Occult Bld Scrn (Negative) Stool Calprotectin mcg/g Stl C. cayetanensis PCR (NotDetected) Stool Rotavirus A PCR (NotDetected) Stl Adenov F 40/41 PCR (NotDetected) Stool Astrovirus (PCR) (NotDetected) Stool Campylobacter PCR (NotDetected) Stool Cryptosporidium PCR (NotDetected) Stl E.coli Shiga Tox PCR (NotDetected) Stl Enterotoxigenic E PCR (NotDetected) Stool EPEC (PCR) (NotDetected) Stool EAEC (PCR) (NotDetected) Stl E. histolytica PCR (NotDetected) Stool Giardia Lamblia PCR (NotDetected) Stool Salmonella PCR (NotDetected) Stool Sapovirus (PCR) (NotDetected) Stl P. shigelloides PCR (NotDetected) Stl Shigella/EIEC PCR (NotDetected) St Y.enterocolitica PCR (NotDetected) Stool Vibrio (PCR) (NotDetected) Stl Vibrio cholerae PCR (NotDetected) Stl Norovirus GI/GII PCR (NotDetected) SARS-CoV-2 (PCR) (Negative) Influenza Type A (PCR) (Neg) Influenza Type B (PCR) (Neg) RSV (RT-PCR) (Neg) 08/26/22 08/26/22 08/26/22 Range/Units 18:23 20:21 20:44 WBC (4.8-10.8) K/ul RBC (3.93-5.22) M/uL Hgb (12.0-16.0) g/dl Hct (34.1-44.9) % MCV (80.0-100.0) fL MCH (25.0-34.0) pg MCHC (32.0-36.0) g/dL RDW Std Deviation (36.4-46.3) fL RDW Coeff of Neil (11.5-14.5) % Plt Count (130-400) K/uL MPV (9.4-12.3) fL Immature Gran % (Auto) % Neut % (Auto) % Lymph % (Auto) % [place] % (Auto) % Eos % (Auto) % Baso % (Auto) % Neut # (Auto) (1.4-6.5) K/uL Lymph # (Auto) (1.2-3.4) K/uL [place] # (Auto) (0.24-0.82) K/uL Eos # (Auto) (0-0.50) K/uL Baso # (Auto) (0-0.2) K/uL Immature Gran # (Auto) (0.00-0.02) K/uL ESR (0-30) mm/hr Sodium (136-145) mmol/L Potassium (3.5-5.1) mmol/L Chloride (98-107) mmol/L Carbon Dioxide (21-32) mmol/L Anion Gap (3-11) BUN (6-23) mg/dl Creatinine (0.6-1.2) mg/dl Est Cr Clr Drug Dosing ml/min Est GFR ( Amer) ml/min Est GFR (Non-Af Amer) ml/min BUN/Creatinine Ratio (10-20) Glucose (70-99(Fasting)) mg/dl Lactate 2.6 H* 1.0 (0.4-2.0) mmol/L Calcium (8.5-10.1) mg/dl Magnesium (1.7-2.4) mg/dl Total Bilirubin (0.2-1.0) mg/dl AST (13-39) U/L ALT (7-52) U/L Alkaline Phosphatase (34-104) U/L Troponin I High Sens (0-14) pg/ml C-Reactive Protein (0-0.5) mg/dl Total Protein (6.0-8.3) gm/dl Albumin (3.4-5.0) gm/dl Globulin (2.5-4.0) gm/dl Albumin/Globulin Ratio (0.9-2) Lipase (11-82) U/L Procalcitonin (0-0.5) ng/ml Urine Color Urine Appearance (Clear) Urine pH (4.5-7.5) Ur Specific [place] (1.000-1.030) Urine Protein (Negative) Urine Glucose (UA) (Negative) Urine Ketones (Negative) Urine Blood (Negative) Urine Nitrite (Negative) Urine Bilirubin (Negative) Urine Urobilinogen (Negative) Ur Leukocyte Esterase (Negative) Stool Occult Bld Scrn (Negative) Stool Calprotectin mcg/g Stl C. cayetanensis PCR (NotDetected) Stool Rotavirus A PCR (NotDetected) Stl Adenov F 40/41 PCR (NotDetected) Stool Astrovirus (PCR) (NotDetected) Stool Campylobacter PCR (NotDetected) Stool Cryptosporidium PCR (NotDetected) Stl E.coli Shiga Tox PCR (NotDetected) Stl Enterotoxigenic E PCR (NotDetected) Stool EPEC (PCR) (NotDetected) Stool EAEC (PCR) (NotDetected) Stl E. histolytica PCR (NotDetected) Stool Giardia Lamblia PCR (NotDetected) Stool Salmonella PCR (NotDetected) Stool Sapovirus (PCR) (NotDetected) Stl P. shigelloides PCR (NotDetected) Stl Shigella/EIEC PCR (NotDetected) St Y.enterocolitica PCR (NotDetected) Stool Vibrio (PCR) (NotDetected) Stl Vibrio cholerae PCR (NotDetected) Stl Norovirus GI/GII PCR (NotDetected) SARS-CoV-2 (PCR) NEGATIVE (Negative) Influenza Type A (PCR) Positive A* (Neg) Influenza Type B (PCR) Negative (Neg) RSV (RT-PCR) Negative (Neg) 08/26/22 08/26/22 08/26/22 Range/Units 20:44 21:49 21:49 WBC (4.8-10.8) K/ul RBC (3.93-5.22) M/uL Hgb (12.0-16.0) g/dl Hct (34.1-44.9) % MCV (80.0-100.0) fL MCH (25.0-34.0) pg MCHC (32.0-36.0) g/dL RDW Std Deviation (36.4-46.3) fL RDW Coeff of Neil (11.5-14.5) % Plt Count (130-400) K/uL MPV (9.4-12.3) fL Immature Gran % (Auto) % Neut % (Auto) % Lymph % (Auto) % [place] % (Auto) % Eos % (Auto) % Baso % (Auto) % Neut # (Auto) (1.4-6.5) K/uL Lymph # (Auto) (1.2-3.4) K/uL [place] # (Auto) (0.24-0.82) K/uL Eos # (Auto) (0-0.50) K/uL Baso # (Auto) (0-0.2) K/uL Immature Gran # (Auto) (0.00-0.02) K/uL ESR 30 (0-30) mm/hr Sodium (136-145) mmol/L Potassium (3.5-5.1) mmol/L Chloride (98-107) mmol/L Carbon Dioxide (21-32) mmol/L Anion Gap (3-11) BUN (6-23) mg/dl Creatinine (0.6-1.2) mg/dl Est Cr Clr Drug Dosing ml/min Est GFR ( Amer) ml/min Est GFR (Non-Af Amer) ml/min BUN/Creatinine Ratio (10-20) Glucose (70-99(Fasting)) mg/dl Lactate (0.4-2.0) mmol/L Calcium (8.5-10.1) mg/dl Magnesium (1.7-2.4) mg/dl Total Bilirubin (0.2-1.0) mg/dl AST (13-39) U/L ALT (7-52) U/L Alkaline Phosphatase (34-104) U/L Troponin I High Sens (0-14) pg/ml C-Reactive Protein (0-0.5) mg/dl Total Protein (6.0-8.3) gm/dl Albumin (3.4-5.0) gm/dl Globulin (2.5-4.0) gm/dl Albumin/Globulin Ratio (0.9-2) Lipase (11-82) U/L Procalcitonin (0-0.5) ng/ml Urine Color Urine Appearance (Clear) Urine pH (4.5-7.5) Ur Specific [place] (1.000-1.030) Urine Protein (Negative) Urine Glucose (UA) (Negative) Urine Ketones (Negative) Urine Blood (Negative) Urine Nitrite (Negative) Urine Bilirubin (Negative) Urine Urobilinogen (Negative) Ur Leukocyte Esterase (Negative) Stool Occult Bld Scrn (Negative) Stool Calprotectin 131 H mcg/g Stl C. cayetanensis PCR Not Detected (NotDetected) Stool Rotavirus A PCR Not Detected (NotDetected) Stl Adenov F 40/41 PCR Not Detected (NotDetected) Stool Astrovirus (PCR) Not Detected (NotDetected) Stool Campylobacter PCR Not Detected (NotDetected) Stool Cryptosporidium PCR Not Detected (NotDetected) Stl E.coli Shiga Tox PCR Not Detected (NotDetected) Stl Enterotoxigenic E PCR Not Detected (NotDetected) Stool EPEC (PCR) Not Detected (NotDetected) Stool EAEC (PCR) Not Detected (NotDetected) Stl E. histolytica PCR Not Detected (NotDetected) Stool Giardia Lamblia PCR Not Detected (NotDetected) Stool Salmonella PCR Not Detected (NotDetected) Stool Sapovirus (PCR) Not Detected (NotDetected) Stl P. shigelloides PCR Not Detected (NotDetected) Stl Shigella/EIEC PCR Not Detected (NotDetected) St Y.enterocolitica PCR Not Detected (NotDetected) Stool Vibrio (PCR) Not Detected (NotDetected) Stl Vibrio cholerae PCR Not Detected (NotDetected) Stl Norovirus GI/GII PCR Not Detected (NotDetected) SARS-CoV-2 (PCR) (Negative) Influenza Type A (PCR) (Neg) Influenza Type B (PCR) (Neg) RSV (RT-PCR) (Neg) 08/27/22 08/27/22 08/27/22 Range/Units 08:26 08:26 12:00 WBC 6.73 (4.8-10.8) K/ul RBC 4.41 (3.93-5.22) M/uL Hgb 12.7 D (12.0-16.0) g/dl Hct 38.5 (34.1-44.9) % MCV 87.3 (80.0-100.0) fL MCH 28.8 (25.0-34.0) pg MCHC 33.0 (32.0-36.0) g/dL RDW Std Deviation 44.2 (36.4-46.3) fL RDW Coeff of Neil 13.6 (11.5-14.5) % Plt Count 200 (130-400) K/uL MPV 9.2 L (9.4-12.3) fL Immature Gran % (Auto) 0.1 % Neut % (Auto) 65.5 % Lymph % (Auto) 23.0 % [place] % (Auto) 11.0 % Eos % (Auto) 0.1 % Baso % (Auto) 0.3 % Neut # (Auto) 4.40 (1.4-6.5) K/uL Lymph # (Auto) 1.55 (1.2-3.4) K/uL [place] # (Auto) 0.74 (0.24-0.82) K/uL Eos # (Auto) 0.01 (0-0.50) K/uL Baso # (Auto) 0.02 (0-0.2) K/uL Immature Gran # (Auto) 0.01 (0.00-0.02) K/uL ESR (0-30) mm/hr Sodium 137 (136-145) mmol/L Potassium 3.9 (3.5-5.1) mmol/L Chloride 106 (98-107) mmol/L Carbon Dioxide 26 (21-32) mmol/L Anion Gap 5 (3-11) BUN 13 (6-23) mg/dl Creatinine 0.71 (0.6-1.2) mg/dl Est Cr Clr Drug Dosing 129.6 ml/min Est GFR ( Amer) 110.4 ml/min Est GFR (Non-Af Amer) 95.2 ml/min BUN/Creatinine Ratio 18.3 (10-20) Glucose 89 (70-99(Fasting)) mg/dl Lactate (0.4-2.0) mmol/L Calcium 7.5 L D (8.5-10.1) mg/dl Magnesium 2.2 (1.7-2.4) mg/dl Total Bilirubin 0.4 (0.2-1.0) mg/dl AST 26 (13-39) U/L ALT 21 (7-52) U/L Alkaline Phosphatase 74 (34-104) U/L Troponin I High Sens (0-14) pg/ml C-Reactive Protein (0-0.5) mg/dl Total Protein 6.2 (6.0-8.3) gm/dl Albumin 3.4 (3.4-5.0) gm/dl Globulin 2.8 (2.5-4.0) gm/dl Albumin/Globulin Ratio 1.2 (0.9-2) Lipase (11-82) U/L Procalcitonin (0-0.5) ng/ml Urine Color Urine Appearance (Clear) Urine pH (4.5-7.5) Ur Specific [place] (1.000-1.030) Urine Protein (Negative) Urine Glucose (UA) (Negative) Urine Ketones (Negative) Urine Blood (Negative) Urine Nitrite (Negative) Urine Bilirubin (Negative) Urine Urobilinogen (Negative) Ur Leukocyte Esterase (Negative) Stool Occult Bld Scrn Positive A (Negative) Stool Calprotectin mcg/g Stl C. cayetanensis PCR (NotDetected) Stool Rotavirus A PCR (NotDetected) Stl Adenov F 40/41 PCR (NotDetected) Stool Astrovirus (PCR) (NotDetected) Stool Campylobacter PCR (NotDetected) Stool Cryptosporidium PCR (NotDetected) Stl E.coli Shiga Tox PCR (NotDetected) Stl Enterotoxigenic E PCR (NotDetected) Stool EPEC (PCR) (NotDetected) Stool EAEC (PCR) (NotDetected) Stl E. histolytica PCR (NotDetected) Stool Giardia Lamblia PCR (NotDetected) Stool Salmonella PCR (NotDetected) Stool Sapovirus (PCR) (NotDetected) Stl P. shigelloides PCR (NotDetected) Stl Shigella/EIEC PCR (NotDetected) St Y.enterocolitica PCR (NotDetected) Stool Vibrio (PCR) (NotDetected) Stl Vibrio cholerae PCR (NotDetected) Stl Norovirus GI/GII PCR (NotDetected) SARS-CoV-2 (PCR) (Negative) Influenza Type A (PCR) (Neg) Influenza Type B (PCR) (Neg) RSV (RT-PCR) (Neg) 08/28/22 08/28/22 08/29/22 Range/Units 08:43 08:43 06:49 WBC 5.86 7.71 (4.8-10.8) K/ul RBC 4.35 4.30 (3.93-5.22) M/uL Hgb 12.4 12.4 (12.0-16.0) g/dl Hct 38.5 38.0 (34.1-44.9) % MCV 88.5 88.4 (80.0-100.0) fL MCH 28.5 28.8 (25.0-34.0) pg MCHC 32.2 32.6 (32.0-36.0) g/dL RDW Std Deviation 43.8 43.2 (36.4-46.3) fL RDW Coeff of Neil 13.4 13.2 (11.5-14.5) % Plt Count 194 191 (130-400) K/uL MPV 9.1 L 9.0 L (9.4-12.3) fL Immature Gran % (Auto) % Neut % (Auto) % Lymph % (Auto) % [place] % (Auto) % Eos % (Auto) % Baso % (Auto) % Neut # (Auto) (1.4-6.5) K/uL Lymph # (Auto) (1.2-3.4) K/uL [place] # (Auto) (0.24-0.82) K/uL Eos # (Auto) (0-0.50) K/uL Baso # (Auto) (0-0.2) K/uL Immature Gran # (Auto) (0.00-0.02) K/uL ESR (0-30) mm/hr Sodium 137 (136-145) mmol/L Potassium 3.6 (3.5-5.1) mmol/L Chloride 105 (98-107) mmol/L Carbon Dioxide 26 (21-32) mmol/L Anion Gap 6 (3-11) BUN 6 (6-23) mg/dl Creatinine 0.49 L (0.6-1.2) mg/dl Est Cr Clr Drug Dosing 187.8 ml/min Est GFR ( Amer) 126.2 ml/min Est GFR (Non-Af Amer) 108.9 ml/min BUN/Creatinine Ratio 12.2 (10-20) Glucose 110 H (70-99(Fasting)) mg/dl Lactate (0.4-2.0) mmol/L Calcium 7.4 L (8.5-10.1) mg/dl Magnesium (1.7-2.4) mg/dl Total Bilirubin 0.4 (0.2-1.0) mg/dl AST 22 (13-39) U/L ALT 18 (7-52) U/L Alkaline Phosphatase 62 (34-104) U/L Troponin I High Sens (0-14) pg/ml C-Reactive Protein (0-0.5) mg/dl Total Protein 6.1 (6.0-8.3) gm/dl Albumin 3.3 L (3.4-5.0) gm/dl Globulin 2.8 (2.5-4.0) gm/dl Albumin/Globulin Ratio 1.2 (0.9-2) Lipase (11-82) U/L Procalcitonin (0-0.5) ng/ml Urine Color Urine Appearance (Clear) Urine pH (4.5-7.5) Ur Specific [place] (1.000-1.030) Urine Protein (Negative) Urine Glucose (UA) (Negative) Urine Ketones (Negative) Urine Blood (Negative) Urine Nitrite (Negative) Urine Bilirubin (Negative) Urine Urobilinogen (Negative) Ur Leukocyte Esterase (Negative) Stool Occult Bld Scrn (Negative) Stool Calprotectin mcg/g Stl C. cayetanensis PCR (NotDetected) Stool Rotavirus A PCR (NotDetected) Stl Adenov F 40/41 PCR (NotDetected) Stool Astrovirus (PCR) (NotDetected) Stool Campylobacter PCR (NotDetected) Stool Cryptosporidium PCR (NotDetected) Stl E.coli Shiga Tox PCR (NotDetected) Stl Enterotoxigenic E PCR (NotDetected) Stool EPEC (PCR) (NotDetected) Stool EAEC (PCR) (NotDetected) Stl E. histolytica PCR (NotDetected) Stool Giardia Lamblia PCR (NotDetected) Stool Salmonella PCR (NotDetected) Stool Sapovirus (PCR) (NotDetected) Stl P. shigelloides PCR (NotDetected) Stl Shigella/EIEC PCR (NotDetected) St Y.enterocolitica PCR (NotDetected) Stool Vibrio (PCR) (NotDetected) Stl Vibrio cholerae PCR (NotDetected) Stl Norovirus GI/GII PCR (NotDetected) SARS-CoV-2 (PCR) (Negative) Influenza Type A (PCR) (Neg) Influenza Type B (PCR) (Neg) RSV (RT-PCR) (Neg) 08/29/22 Range/Units 06:49 WBC (4.8-10.8) K/ul RBC (3.93-5.22) M/uL Hgb (12.0-16.0) g/dl Hct (34.1-44.9) % MCV (80.0-100.0) fL MCH (25.0-34.0) pg MCHC (32.0-36.0) g/dL RDW Std Deviation (36.4-46.3) fL RDW Coeff of Neil (11.5-14.5) % Plt Count (130-400) K/uL MPV (9.4-12.3) fL Immature Gran % (Auto) % Neut % (Auto) % Lymph % (Auto) % [place] % (Auto) % Eos % (Auto) % Baso % (Auto) % Neut # (Auto) (1.4-6.5) K/uL Lymph # (Auto) (1.2-3.4) K/uL [place] # (Auto) (0.24-0.82) K/uL Eos # (Auto) (0-0.50) K/uL Baso # (Auto) (0-0.2) K/uL Immature Gran # (Auto) (0.00-0.02) K/uL ESR (0-30) mm/hr Sodium 139 (136-145) mmol/L Potassium 3.7 (3.5-5.1) mmol/L Chloride 105 (98-107) mmol/L Carbon Dioxide 29 (21-32) mmol/L Anion Gap 5 (3-11) BUN 5 L (6-23) mg/dl Creatinine 0.50 L (0.6-1.2) mg/dl Est Cr Clr Drug Dosing 184.1 ml/min Est GFR ( Amer) 125.4 ml/min Est GFR (Non-Af Amer) 108.2 ml/min BUN/Creatinine Ratio 10.0 (10-20) Glucose 96 (70-99(Fasting)) mg/dl Lactate (0.4-2.0) mmol/L Calcium 7.6 L (8.5-10.1) mg/dl Magnesium (1.7-2.4) mg/dl Total Bilirubin 0.4 (0.2-1.0) mg/dl AST 17 (13-39) U/L ALT 17 (7-52) U/L Alkaline Phosphatase 56 (34-104) U/L Troponin I High Sens (0-14) pg/ml C-Reactive Protein (0-0.5) mg/dl Total Protein 6.2 (6.0-8.3) gm/dl Albumin 3.3 L (3.4-5.0) gm/dl Globulin 2.9 (2.5-4.0) gm/dl Albumin/Globulin Ratio 1.1 (0.9-2) Lipase (11-82) U/L Procalcitonin (0-0.5) ng/ml Urine Color Urine Appearance (Clear) Urine pH (4.5-7.5) Ur Specific [place] (1.000-1.030) Urine Protein (Negative) Urine Glucose (UA) (Negative) Urine Ketones (Negative) Urine Blood (Negative) Urine Nitrite (Negative) Urine Bilirubin (Negative) Urine Urobilinogen (Negative) Ur Leukocyte Esterase (Negative) Stool Occult Bld Scrn (Negative) Stool Calprotectin mcg/g Stl C. cayetanensis PCR (NotDetected) Stool Rotavirus A PCR (NotDetected) Stl Adenov F 40/41 PCR (NotDetected) Stool Astrovirus (PCR) (NotDetected) Stool Campylobacter PCR (NotDetected) Stool Cryptosporidium PCR (NotDetected) Stl E.coli Shiga Tox PCR (NotDetected) Stl Enterotoxigenic E PCR (NotDetected) Stool EPEC (PCR) (NotDetected) Stool EAEC (PCR) (NotDetected) Stl E. histolytica PCR (NotDetected) Stool Giardia Lamblia PCR (NotDetected) Stool Salmonella PCR (NotDetected) Stool Sapovirus (PCR) (NotDetected) Stl P. shigelloides PCR (NotDetected) Stl Shigella/EIEC PCR (NotDetected) St Y.enterocolitica PCR (NotDetected) Stool Vibrio (PCR) (NotDetected) Stl Vibrio cholerae PCR (NotDetected) Stl Norovirus GI/GII PCR (NotDetected) SARS-CoV-2 (PCR) (Negative) Influenza Type A (PCR) (Neg) Influenza Type B (PCR) (Neg) RSV (RT-PCR) (Neg) Administered Medications Discontinued Medications Aspirin (Aspirin 81 Mg Ectab) 81 mg PO QAM [facility] Stop: 09/26/22 08:59 Last Admin: 08/29/22 08:34 Dose: 81 mg Documented By: Admin: 08/28/22 08:37 Dose: 81 mg Documented By: Admin: 08/27/22 11:30 Dose: 81 mg Documented By: JAIME Carvedilol (Carvedilol 6.25 Mg Tab) 6.25 mg PO BID [facility] Stop: 09/26/22 00:30 Last Admin: 08/29/22 08:33 Dose: 6.25 mg Documented By: Admin: 08/28/22 19:58 Dose: 6.25 mg Documented By: Admin: 08/28/22 08:39 Dose: 6.25 mg Documented By: Admin: 08/27/22 19:48 Dose: 6.25 mg Documented By: Admin: 08/27/22 11:30 Dose: 6.25 mg Documented By: Admin: 08/27/22 01:40 Dose: 6.25 mg Documented By: LALO Cyanocobalamin (Cyanocobalamin (B-12) 500 Mcg Tablet) 1,000 mcg PO HS [facility]ICA Stop: 09/26/22 00:30 Last Admin: 08/28/22 19:58 Dose: 1,000 mcg Documented By: Admin: 08/27/22 19:49 Dose: 1,000 mcg Documented By: Admin: 08/27/22 01:40 Dose: 1,000 mcg Documented By: LALO Dicyclomine HCl (Dicyclomine Hcl 20 Mg Tab) 20 mg PO NOW STA Stop: 08/26/22 18:19 Last Admin: 08/26/22 18:52 Dose: 20 mg Documented By: EFE Enoxaparin Sodium (Enoxaparin Inj 40 Mg/0.4 Ml Syr) 40 mg SQ Q12H MONICA Stop: 09/28/22 13:59 Last Admin: 08/29/22 15:45 Dose: 40 mg Documented By: VIKAS Famotidine (Famotidine 20mg/5ml Iv Push) Confirm Administered Dose 20 mg IV .STK-MED ONE Stop: 08/26/22 18:50 Last Admin: 08/26/22 18:52 Dose: 20 mg Documented By: EFE Fluticasone Furoate (Fluticasone Furoate 100mcg 14 Puffs/Inhaler) 1 puffs INH DAILY MONICA Stop: 09/26/22 08:59 Last Admin: 08/29/22 08:35 Dose: 1 puffs Documented By: Admin: 08/28/22 08:36 Dose: 1 puffs Documented By: Admin: 08/27/22 11:31 Dose: 1 puffs Documented By: JAIME Hydromorphone HCl (Hydromorphone Inj 0.5 Mg/0.5 Ml Syr) 0.25 mg IV Q6H PRN PRN Reason: Severe Pain Stop: 09/10/22 00:30 Last Admin: 08/28/22 16:29 Dose: 0.25 mg Documented By: JESENIA Sodium Chloride (Nss 1000ml) 1,000 mls @ 999 mls/hr IV .Q1H1M STA Stop: 08/26/22 15:47 Last Infusion: 08/26/22 16:58 Dose: 0 mls/hr Documented By: Admin: 08/26/22 15:48 Dose: 999 mls/hr Documented By: EFE Famotidine 20 mg/ Syringe 5 mls @ 2.5 mls/min IV NOW STA Stop: 08/26/22 17:33 Last Admin: 08/26/22 18:52 Dose: Not Given Documented By: EFE Sodium Chloride (Nss 1000ml) 1,000 mls @ 150 mls/hr IV .Q6H40M [facility] Stop: 09/25/22 19:14 Last Admin: 08/27/22 02:16 Dose: Not Given Documented By: TKAbena Sodium Chloride (Nss 1000ml) 1,000 mls @ 999 mls/hr IV .Q1H1M ONE Stop: 08/26/22 20:10 Last Infusion: 08/26/22 21:26 Dose: 0 mls/hr Documented By: Admin: 08/26/22 20:46 Dose: 999 mls/hr Documented By: JUWAN Piperacillin Sod/Tazobactam (Sod 4.5 gm/ Dextrose) 120 mls @ 30 mls/hr IV Q8H [facility]; Protocol Stop: 09/06/22 01:59 Last Admin: 08/27/22 11:04 Dose: Not Given Documented By: CAPaula Infusion: 08/27/22 05:54 Dose: 0 mls/hr Documented By: TKAbena Admin: 08/27/22 01:41 Dose: 30 mls/hr Documented By: LALO Piperacillin Sod/Tazobactam (Sod 4.5 gm/ Dextrose) 120 mls @ 200 mls/hr IV NOW ONE; Protocol Stop: 08/26/22 20:50 Last Infusion: 08/26/22 21:26 Dose: 0 mls/hr Documented By: Admin: 08/26/22 20:49 Dose: 200 mls/hr Documented By: JUWAN Parenteral Electrolytes (Normosol-R) 1,000 mls @ 75 mls/hr IV .[id number] MON[facility] Stop: 09/26/22 00:30 Last Admin: 08/29/22 00:35 Dose: 75 mls/hr Documented By: Infusion: 08/29/22 00:35 Dose: 75 mls/hr Documented By: Admin: 08/28/22 11:42 Dose: 75 mls/hr Documented By: Infusion: 08/28/22 11:40 Dose: 75 mls/hr Documented By: Admin: 08/27/22 22:20 Dose: 75 mls/hr Documented By: Infusion: 08/27/22 22:20 Dose: 190 mls/hr Documented By: Admin: 08/27/22 17:25 Dose: 190 mls/hr Documented By: Infusion: 08/27/22 16:46 Dose: 190 mls/hr Documented By: Admin: 08/27/22 11:30 Dose: 190 mls/hr Documented By: Infusion: 08/27/22 11:30 Dose: 190 mls/hr Documented By: Admin: 08/27/22 06:19 Dose: 190 mls/hr Documented By: Infusion: 08/27/22 06:19 Dose: 190 mls/hr Documented By: Admin: 08/27/22 01:41 Dose: 190 mls/hr Documented By: LALO Acetaminophen (Ofirmev) 1,000 mg in 100 mls @ 400 mls/hr IV Q8H PRN PRN Reason: Mild Pain Stop: 08/30/22 00:30 Last Infusion: 08/27/22 16:25 Dose: 0 mls/hr Documented By: Admin: 08/27/22 16:09 Dose: 400 mls/hr Documented By: JAIME Ioversol (Optiray 320 500ml) 114 ml IV ONCE ONE Stop: 08/26/22 16:52 Last Admin: 08/26/22 16:54 Dose: 114 ml Documented By: MELA Ioversol (Optiray 320 500ml) 125 ml IV ONCE ONE Stop: 08/27/22 05:45 Last Admin: 08/27/22 05:44 Dose: 106 ml Documented By: CHONG Lisinopril (Lisinopril 2.5 Mg Tab) 2.5 mg PO QAM [facility] Stop: 09/26/22 08:59 Last Admin: 08/29/22 08:34 Dose: 2.5 mg Documented By: Admin: 08/28/22 08:37 Dose: 2.5 mg Documented By: Admin: 08/27/22 11:29 Dose: 2.5 mg Documented By: JAIME Morphine Sulfate (Morphine Sulfate 4 Mg/Ml 1 Ml Carp\Vial) 4 mg IV NOW STA Stop: 08/26/22 14:48 Last Admin: 08/26/22 15:47 Dose: 4 mg Documented By: EFE Morphine Sulfate (Morphine Sulfate 4 Mg/Ml 1 Ml Carp\Vial) 4 mg IV NOW STA Stop: 08/26/22 18:19 Last Admin: 08/26/22 18:52 Dose: 4 mg Documented By: EFE Morphine Sulfate (Morphine Sulfate 2 Mg/Ml Carp) 2 mg IV Q4H PRN PRN Reason: Moderate Pain Stop: 09/10/22 00:30 Last Admin: 08/28/22 21:20 Dose: 2 mg Documented By: Admin: 08/28/22 13:37 Dose: 2 mg Documented By: Admin: 08/27/22 22:20 Dose: 2 mg Documented By: Admin: 08/27/22 02:08 Dose: 2 mg Documented By: LALO Ondansetron HCl (Ondansetron Inj 2 Mg/Ml 2 Ml Vial) 4 mg IV NOW STA Stop: 08/26/22 14:48 Last Admin: 08/26/22 15:47 Dose: 4 mg Documented By: EFE Ondansetron HCl (Ondansetron Inj 2 Mg/Ml 2 Ml Vial) 4 mg IV Q6H PRN PRN Reason: Nausea Stop: 09/26/22 00:30 Last Admin: 08/28/22 13:47 Dose: 4 mg Documented By: JESENIA Oseltamivir Phosphate (Oseltamivir Phosphate 75 Mg Cap) 75 mg PO BID MONICA; Protocol Stop: 08/31/22 22:29 Last Admin: 08/29/22 08:33 Dose: 75 mg Documented By: Admin: 08/28/22 19:57 Dose: 75 mg Documented By: Admin: 08/28/22 08:39 Dose: 75 mg Documented By: Admin: 08/27/22 19:48 Dose: 75 mg Documented By: Admin: 08/27/22 11:30 Dose: 75 mg Documented By: Admin: 08/27/22 01:41 Dose: 75 mg Documented By: LALO Pantoprazole Sodium (Pantoprazole 40 Mg Tab) 40 mg PO NOW STA Stop: 08/26/22 17:33 Last Admin: 08/26/22 17:53 Dose: 40 mg Documented By: EFE Pantoprazole Sodium (Pantoprazole 40 Mg Tab) [facility] [place] Stop: 09/26/22 08:59 Last Admin: 08/28/22 08:36 Dose: 40 mg Documented By: Admin: 08/27/22 11:29 Dose: 40 mg Documented By: JAIME Pantoprazole Sodium (Pantoprazole 40 Mg Tab) 40 mg PO BID [facility] Stop: 09/27/22 20:59 Last Admin: 08/29/22 08:35 Dose: 40 mg Documented By: Admin: 08/28/22 19:57 Dose: 40 mg Documented By: LALO Rosuvastatin Calcium (Rosuvastatin Calcium 10 Mg Tab) 10 mg PO [facility] Stop: 09/26/22 08:59 Last Admin: 08/29/22 08:34 Dose: 10 mg Documented By: Admin: 08/28/22 08:37 Dose: 10 mg Documented By: Admin: 08/27/22 11:30 Dose: 10 mg Documented By: JAIME Venlafaxine HCl (Venlafaxine Hcl Xr 150 Mg Capxr) 150 mg PO [facility] Stop: 09/26/22 08:59 Last Admin: 08/29/22 08:35 Dose: 150 mg Documented By: Admin: 08/28/22 08:37 Dose: 150 mg Documented By: Admin: 08/27/22 11:30 Dose: 150 mg Documented By: JAIME Vitamin D (Cholecalciferol 1,000 Units 25 Mcg Tab) 1,000 units PO [facility] Stop: 09/26/22 00:30 Last Admin: 08/28/22 19:58 Dose: 1,000 units Documented By: Admin: 08/27/22 19:49 Dose: 1,000 units Documented By: Admin: 08/27/22 01:41 Dose: 1,000 units Documented By: LALO Imaging Data Radiologist's Impression: Chest X-Ray 08/26/22 14:48 SINGLE VIEW CHEST CLINICAL HISTORY: Atypical chest pain. FINDINGS: An AP, portable, upright chest radiograph is compared to study dated 06/27/2022. The cardiomediastinal silhouette is unremarkable. The lungs and pleural spaces are clear. No pneumothorax is seen. The bony thorax is grossly intact. IMPRESSION: No active disease in the chest. ACT 112: Negative or not required by law. Electronically signed by: Fernandez Allen M.D. 08/26/2022 3:29 PM Abdomen/Pelvis CT 08/26/22 15:20 CT OF THE ABDOMEN AND PELVIS WITH CONTRAST CLINICAL HISTORY: Left-sided abdominal pain. COMPARISON STUDY: CT of the abdomen and pelvis September 29, 2019. TECHNIQUE: Following IV administration of 114 mL of Optiray, axial images of the abdomen and pelvis were obtained from the lung bases to the proximal femurs. Images were reviewed in the axial, sagittal, and coronal planes. IV contrast was administered without complication. Automated exposure control was utilized for the study. A dose lowering technique was utilized adhering to the principles of ALARA. CT DOSE: 2001.74 mGy.cm FINDINGS: Lung bases are unremarkable. No pneumatosis, free air or portal venous gas is present. There is no biliary ductal dilatation status post cholecystectomy. Note is made of moderate stranding and a small amount of fluid adjacent to the proximal duodenum. There is no extraluminal gas or fluid collection. Spleen, adrenal glands and kidneys are unremarkable with the exception of a 1.2 cm left renal cyst. No hydronephrosis. There is no abdominal or pelvic lymphadenopathy. Sigmoid diverticulosis is noted without evidence for acute diverticulitis. Moderate wall thickening with adjacent stranding involving the mid to distal transverse colon, splenic flexure and proximal to mid descending colon is again noted. Similar findings were shown on CT of September 29, 2019. There is no abscess. There is no free air. No evidence for a bowel obstruction. A moderate amount stool within the colon and rectum is present. The major vasculature is patent. IMPRESSION: 1. Findings consistent with a left-sided colitis, similar to CT of September 29, 2019. Although nonspecific, the appearance raises the possibility of ischemic colitis. 2. Fluid and stranding adjacent to the proximal duodenum. This favors duodenitis/peptic ulcer disease. No free air. No extraluminal gas. 3. No bowel obstruction. Moderate amount of stool within the colon and rectum. ACT 112: Negative or not required by law. Electronically signed by: Hank Acharya M.D. 08/26/2022 5:11 PM Blood Pressure Blood Pressure Findings: Elevated blood pressure Blood Pressure Disposition: Referred to patients primary care provider Discharge Plan Visit Data Chief Complaint: Abdominal Pain Stated Complaint: abdominal pain ED Provider: Brisa Douglass Discharge Problem: Colitis, Peptic ulcer of duodenum, Morbid obesity with BMI of 50.0-59.9, adult Patient Disposition: Admitted As Inpatient Discharge Instructions Interventions: ED Discharge Assessment Last Done: 08/26/22 23:32
[2022-08-26] MEDS ORDERED: FAMOTIDINE 20MG/5ML IV PUSH IV ONE (18:49)
[2022-08-26] MEDS ORDERED: SODIUM CHLORIDE 0.9% 1000ML 1,000 ML IV ONE (19:10)
[2022-08-26] MEDS ORDERED: SODIUM CHLORIDE 0.9% 1000ML 1,000 ML IV SCH (19:15)
--- NOTE | 2022-08-26 19:34 | History & Physical Report ---
Date of Service August 26, 2022 Assessment & Plan (1) Left sided colitis: Plan: CT A/P with left-sided colitis (moderate wall thickening with adjacent stranding involving [id number]-py-[id number] transverse colon, splenic flexure and ybeeondk-[id number]-lxp descending colon) - similar to CT findings in 09/2019. Multiple possible etiologies: 1. Infectious colitis, most likely: Subjective fever/chills and N/V for several days is suspicious for viral vs bacterial colitis. 2. Ischemic colitis: Findings suggestive of this per Radiology report. Patient has had had Lactate 2.6 but is hemodynamically stable. However has several vascular risk factors. 3. Inflammatory colitis: Possible family h/o IBD, previous bouts of diarrhea with mucus. However normal colonoscopy 4 years ago makes this less likely. - check CTA A/P in the AM ([address] A/P with IV contrast) - consult surgery - appreciate recs - NPO pending surgical evaluation - check CRP, ESR, stool calprotectin - check procalcitonin, stool PCR - start Zosyn empirically for possible infectious colitis - s/p 1L NSS bolus in ED - continue with full mIVFs: Normosol-R @190cc/hr - PRN Zofran for nausea - graduated PRN pain regimen: Tylenol 1g IV Q8H; Morphine 2mg IV Q4H; Dilaudid 0.25mg IV Q6H (2) Duodenitis: Plan: Findings per CT A/P - indicative of peptic ulcer disease. - s/p Protonix/Pepcid in ED - continue with Protonix 40mg PO daily - f/u with PCP regarding further management (3) Hypertension: Plan: Continue home Carvedilol and Lisinopril (4) Hyperlipidemia: Plan: Continue home Rosuvastatin (5) Depression: Plan: Continue home Effexor (6) Asthma: Plan: Continue home inhalers Plan FEN/GI: NPO, Normosol-R @190cc/hr DVT Prophylaxis: SCDs, hold chemoppx in case of need for surgery Code Status: full code Disposition: med/surg History of Present Illness Chief Complaint: abdominal pain Primary Care Provider: ALVERTO Ross Ester Farias is a 56yo female with PMHx significant for morbid obesity (BMI 54.7), HTN, HLD, metabolic syndrome, asthma and depression who presented to [facility] ED on 08/26 for worsening left-sided abdominal pain, nausea/vomiting, and lack of BMs for 3 days. Patient reports that she went to a [place] restaurant on that she has never been too - ate a taco salad; then the next day started to have pbay-tn-kvkeruev colicky left-sided abdominal pain with nausea, decreased appetite, no BMs or passing gas, and subjective fever/chills. Of note no one else with her at the restaurant got sick. Then at 12:00 ON 08/25 pain suddenly worsened to severe with associated nausea and NB/NB vomiting. No recent melena/blood/mucus in stools. Did have chronic constipation she has been dealing with before above-mentioned symptoms started. Has not experienced pain like this in the past. Denies chest pain, SOB, dysuria or rash. Has h/o laparoscopic cholecystectomy as well as . Does report several previous episodes of mucus in stools but has never been diagnosed with IBD and did have unremarkable colonoscopy done 4 years ago, with recommendations for repeat study in 10 years. Does report that her father had "a hole in his bowels" that required surgical repair but is unsure if he had IBD diagnosis. Denies h/o dietary intolerance. Patient is a never smoker and denies alcohol/drug use. She is proficient in ADLs/iADLs. In the ED the patient was afebrile and hemodynamically stable on room air. Labs significant for lactate 3.6, and UA SG 1.045. Otherwise CBC/CMP/Mg/Lipase/hsTroponin all WNL. EKG with NSR without ST/T abnormalities. CXR unremarkable. CT A/P with left- sided colitis (moderate wall thickening with adjacent stranding involving zlw-fz-zvcfyk transverse colon, splenic flexure and hmxpissk-zz-poy descending colon) - similar to CT findings in 09/2019. Also with fluid/stranding adjacent to proximal duodenum favoring duodenitis/PUD. No bowel obstruction. Moderate stool burden in colon/rectum. In the ED the patient was given Morphine 4mg IV x2, Zofran 4mg IV, Pepcid 20mg IV, Protonix 40mg PO, Dicyclomine 20mg PO, and NSS 1L bolus. Allergies Allergy/AdvReac Type Severity Reaction Status Date / Time latex Allergy Mild ITCHINESS Verified 08/26/22 16:45 adhesive tape Allergy Unknown SKIN Verified 08/26/22 16:45 IRRITATION metronidazole Allergy Unknown PT DOESN'T Verified 08/26/22 16:45 REMEMBER REACTION prochlorperazine Allergy Unknown muscle Verified 08/26/22 16:45 spasms amoxicillin AdvReac Intermediate SEVERE Verified 08/26/22 16:45 YEAST INFECTIONS METAL Allergy Unknown SKIN Uncoded 08/26/22 16:45 IRRITATION WITH EXTENDED USE Home Medications Medication Instructions Recorded Confirmed Type cholecalciferol (vitamin D3) 25 1,000 units PO HS 05/03/19 08/26/22 History mcg (1,000 unit) capsule cyanocobalamin (vitamin B-12) 1,000 mcg PO HS 05/03/19 08/26/22 History 1,000 mcg tablet fluticasone propionate 110 1 puffs inhalation BID PRN Wheezing 05/03/19 08/26/22 History mcg/actuation HFA aerosol inhaler albuterol sulfate 90 mcg/actuation 1 - 2 puff inhalation Q4H PRN 09/29/19 08/26/22 History aerosol inhaler Shortness Of Breath multivitamin 1 tab PO QAM 09/29/19 08/26/22 History carvedilol 6.25 mg tablet 6.25 mg PO BID #180 tabs 11/29/19 08/26/22 Rx aspirin 81 mg tablet,delayed 81 mg PO QAM 02/08/21 08/26/22 History release atorvastatin 40 mg tablet 40 mg PO QAM 02/08/21 08/26/22 History benzonatate 100 mg capsule 100 mg PO UD PRN Cough 02/08/21 08/26/22 History cyclobenzaprine 10 mg tablet 10 mg PO DAILY PRN Muscle Spasm 02/08/21 08/26/22 History fluticasone propionate 44 1 puff inhalation BID 02/08/21 08/26/22 History mcg/actuation HFA aerosol inhaler (Flovent HFA) lisinopril 2.5 mg tablet 2.5 mg PO QAM 02/08/21 08/26/22 History rosuvastatin 10 mg tablet (Crestor) 10 mg PO QAM 02/08/21 08/26/22 History venlafaxine 150 mg 150 mg PO QAM 02/08/21 08/26/22 History capsule,extended release 24 hr (Effexor XR) zinc sulfate 50 mg zinc (220 mg) 0 mg PO HS 02/08/21 08/26/22 History tablet liraglutide (weight loss) 3 mg/0.5 2.4 mg subcut DAILY 08/26/22 08/26/22 History mL (18 mg/3 mL) subcut pen injector (Saxenda) Past Med/Surg History Medical History Bariatric surgery status UPCOMING EGD D/T FUTURE PLANNING OF BARIATRIC SX Borderline anemia Depression Family history of reaction to anesthesia N/V WITH GRANDMOTHER, SISTER, MOTHER GERD (gastroesophageal reflux disease) STATIN CAUSES THIS PER PT History of colon polyps ? MA (myocardial infarction) 2013 / HEART CATH/NO FINDINGS Morbid obesity Nausea and vomiting after administration of anesthetic agent AFTER GALLBLADDER SX Obstructive sleep apnea, adult can't tolerate cpap/upcoming new assessment planned jun 26 2022 Surgical History H/O section History of cardiac cath MA...2013/[place] - NO STENT(S) History of cholecystectomy Family History Mother Dementia Family/Other Obstructive sleep apnea Father Myasthenia gravis Other Family history of colonic polyps Social History Smoking Status: Never smoker Hx Alcohol Use: No Hx Substance Use: No Preferred Language: Congolese Communication Ability: Effective [employer] Operator Required: No Beliefs That Will Affect Care: None Current Living Situation: Family Current Living Situation Comment: AND 4 ADULT CHILDREN Other Information That Helps Us Care for You: No Feels Safe at Home: Yes Safety Concerns: Feels Safe At This Time Assistive Devices: None and Hospital Bed Review of Systems Review of Systems: All systems reviewed & are unremarkable except as noted in HPI & below Physical Exam Physical Exam: General: A&Ox3. NAD. Cooperative. Morbidly obese. HEENT: Atraumatic, normocephalic. Pulm: CTAB A&P. -wheezes, -rales, -rhonchi. Symmetrical chest rise. No increase work of breathing. No respiratory distress. Cardiac: RRR, -mrg. Radial pulses intact and symmetrical. No LE edema. Abdominal: soft, protuberant but not distended, moderate left abdominal tenderness without guarding/rebound, hypoactive BS x 4 Skin: warm, dry, no rash Results & Data Results & Data ([facility]) Vital Signs (Past 12 Hours) Vital Signs Temp Pulse Pulse Resp BP BP Pulse Ox 08/26/22 17:00 08/26/22 17:00 77 18 141/60 H 97 08/26/22 14:31 37.1 C 72 18 135/45 L 94 O2 Del Method 08/26/22 17:00 Room Air 08/26/22 17:00 Room Air 08/26/22 14:31 Room Air Supervising Physician Co-Signing Physician Notes Attending addendum: I have physically seen this patient, have supervised the medical residents activities, and agree with the H&P unless as otherwise noted. Assessment and Plan: Influenza A- Start Tamiflu 75 mg p.o. twice daily x5 days Left-sided colitis- Infectious versus ischemic versus inflammatory Normal colonoscopy [address] read is similar compared to previous from 09/29/2019 Most likely infectious etiology Follow stool cultures Additional studies as noted: CRP, sed rate, stool calprotectin, procalcitonin, stool PCR Started on Zosyn Zofran 4 mg IV every 6 hours as needed Acetaminophen 1 g IV every 8 hours. Mild pain or fever Morphine sulfate 2 mg IV every 4 hours as needed moderate pain Dilaudid 0.25 mg IV every 6 hours as needed severe pain Duodenitis- Received Protonix and Pepcid from the ED Continue Protonix 40 mg p.o. daily Hypertension- Continue carvedilol and lisinopril with hold parameters Remaining orders and notations as noted Resident Activity Tracking Resident Involvement: Resident Care Provided Care Provided: Adult Hospital Medicine
[2022-08-26] MEDS ORDERED: PIPERACILLIN/TAZOBACTAM 4.5 GM in DEXTROSE 5% 100 ML IV ONE (20:15)
[2022-08-26 21:16] LABS: Influenza B virus by PCR Negative (Neg); RSV by PCR Negative (Neg); SARS CoV2 RNA(COVID-19) Ceph NEGATIVE (Negative)
[2022-08-26 21:28] LABS: Influenza A virus by PCR Positive (Neg)
[2022-08-27 00:02] LABS: Adenovirus F 40/41 PCR Not Detected (NotDetected); Astrovirus PCR Not Detected (NotDetected); Campylobacter PCR Not Detected (NotDetected); Cryptosporidium PCR Not Detected (NotDetected); Cyclospora cayetanensis PCR Not Detected (NotDetected); Entamoeba histolytica PCR Not Detected (NotDetected); Enteroaggregative E.coli(EAEC) Not Detected (NotDetected); Enteropathogenic E.coli (EPEC) Not Detected (NotDetected); Enterotoxigenic E.coli (ETEC) Not Detected (NotDetected); Giardia lamblia PCR Not Detected (NotDetected); Norovirus GI/GII PCR Not Detected (NotDetected); Plesiomonas shigelloides PCR Not Detected (NotDetected); Rotavirus A PCR Not Detected (NotDetected); Salmonella PCR Not Detected (NotDetected); Sapovirus PCR Not Detected (NotDetected); Shiga-like Toxin E.coli (STEC) Not Detected (NotDetected); Shigella/Enteroinvasive E.coli Not Detected (NotDetected); Vibrio cholerae PCR Not Detected (NotDetected); Vibrio species PCR Not Detected (NotDetected); Yersinia enterocolitica PCR Not Detected (NotDetected)
[2022-08-27] MEDS ORDERED: ONDANSETRON INJ 2 MG/ML 2 ML VIAL IV PRN (00:31)
[2022-08-27] MEDS ORDERED: ACETAMINOPHEN 1,000 MG/100 ML VIAL IV PRN (00:31)
[2022-08-27] MEDS ORDERED: HYDROmorphone INJ 0.5 MG/0.5 ML SYR IV PRN (00:31)
[2022-08-27] MEDS: carvediloL 6.25 MG TAB PO SCH ×3 (01:40→19:48)
[2022-08-27] MEDS: CYANOCOBALAMIN (B-12) 500 MCG TABLET PO SCH ×2 (01:40→19:49)
[2022-08-27] MEDS: CHOLECALCIFEROL 1,000 UNITS 25 MCG TAB PO SCH ×2 (01:41→19:49)
[2022-08-27] MEDS: PIPERACILLIN/TAZOBACTAM 4.5 GM in DEXTROSE 5% 100 ML IV SCH ×2 (01:41→11:04)
[2022-08-27] MEDS: OSELTAMIVIR PHOSPHATE 75 MG CAP PO SCH ×3 (01:41→19:48)
[2022-08-27] MEDS: NORMOSOL-R 1,000 ML IV SCH ×5 (01:41→22:20)
[2022-08-27] MEDS: MoRPHine SULFATE 2 MG/ML CARP IV PRN ×2 (02:08→22:20)
--- NOTE | 2022-08-27 02:09 | Surgery Consultation ---
Date of Consultation August 27, 2022 Assessment & Plan (1) Left sided colitis: The patient has been admitted on the hospitalist service. We recommend proceeding as follows: Keep patient n.p.o. Provide IV fluid for hydration Continue antibiotics. She has had Zosyn initiated in the emergency department Plans are noted by the primary service to perform a CT angiogram of the abdomen pelvis on 08/27/2022 as the interpreting radiologist raises concern of potential ischemic colitis on her initial CT scan. At the present time the patient is normotensive without tachycardia or fever. In addition she does not have leukocytosis. She has noted that her abdominal symptomatology has improved with analgesics, antibiotics, and intravenous fluids. At the present time she does not have an acute abdomen and I not feel an urgent operation is required at this time. We will follow along for the results of patient's repeat CT scan with further recommendations to follow. Supervising Physician Co-Signing Physician Notes Patient seen and examined, labs and image reviewed, agree with above. 56-year-old male with several day history of body aches and fever/chills with some abdominal pain that developed yesterday. She had some loose liquidy bowel movements, some which may have appeared bloody. On exam she is afebrile with stable vitals. Her abdomen is soft, mildly tender to palpation in the left upper quadrant, no guarding. Her labs are unremarkable. She did test positive for influenza A. CT scan was personally viewed and interpreted by myself and agree with the assessment of a likely colitis in the left upper quadrant, possibly ischemic. Patient appears to have developed ischemic colitis in the watershed area at the splenic flexure secondary to influenza infection and dehydration. This will likely resolve with supportive measures. She had a similar episode in 2019 and has not had a colonoscopy in 6 years. Recommend continued supportive care with IV fluids. Recommend IV antibiotics and GI consultation. No surgical intervention at this time. She may have clear liquids and then will advance to low fiber diet over the next day or 2. Will need outpatient colonoscopy as inflammation dies down. Surgery will continue to follow, call with questions or concerns History of Present Illness Reason for Consultation: Colitis Attending Physician: Elian Griffith MD History of Present Illness This is a 56-year-old female who presented to the emergency department secondary to abdominal pain. Patient notes that she has been having abdominal pain which is greatest on the left side of her abdomen for approximately 3 days. She notes that the pain has intensified over this timeframe prompting her visit to the emergency department. She notes that the pain is nonradiating. She denies any palliative or provocative factors. She has associated nausea and vomiting which has since resolved. Patient also notes that she was having loose bowel movements that appeared greenish/dark-colored. She notes that no close contacts are ill with similar symptoms. She denies any fevers, shakes, or chills. She notes that she did have a colonoscopy at age 50 and to the best of her knowledge there is no concerning pathology noted on the study. She has had prior surgeries in the form of a but has no other additional abdominal surgeries. Patient further adds that she does report some intermittent postprandial abdominal pain that has been going on for "quite some time" but this pain is usually to the right of her umbilicus. Patient also notes that she is not diabetic and does not have any known vascular disease. In addition she reports no history of cardiac arrhythmia or atrial fibrillation. Since arrival to the hospital the patient has had labs and imaging which independently reviewed. Patient did have a CT scan of the abdomen and pelvis which showed findings concerning for left-sided colitis. There is moderate wall thickening and adjacent stranding involving the mid to distal transverse colon, splenic flexure, and proximal to mid descending colon. No abscess was noted. There is no free air. There is no evidence of bowel obstruction. (It is noteworthy to mention that the patient did have a CT scan of her abdomen pelvis on 09/29/2019. This study did show long segment of thickening of the colon which begin at the mid transverse colon extended through the distal descending colon. At this time there is no evidence of perforation or drainable fluid collection. At this time this was felt to represent a nonspecific colitis.) Chest x-ray showed no evidence of pneumonia. Labs include a CBC were white blood cell count was noted to be normal and not elevated. Hemoglobin and hematocrit were 15.7 and 46.4. Platelet count was normal. Chemistry profile showed sodium was 135. Potassium, BUN, and creatinine were all normal. The patient did have a lactic acid level checked which was 2.6 at approximately 4:30 PM on 08/26/2022. This value was checked just over 2 hours later and was noted to be within the normal range and not elevated. There is no elevation of transaminases or bilirubin. Alkaline phosphatase was slightly elevated at 106. Lipase was nonelevated. Urinalysis was not indicative of infection. Patient did have a COVID test that was negative and did test positive for influenza A. RSV testing was negative as was influenza B. The patient had various stool studies checked which were all negative to date. The patient has had intravenous fluids initiated and has been given antibiotics in the form of Zosyn. In addition the patient has received analgesics and did note some symptomatic improvement since admission. Allergies Allergy/AdvReac Type Severity Reaction Status Date / Time latex Allergy Mild ITCHINESS Verified 08/26/22 16:45 adhesive tape Allergy Unknown SKIN Verified 08/26/22 16:45 IRRITATION metronidazole Allergy Unknown PT DOESN'T Verified 08/26/22 16:45 REMEMBER REACTION prochlorperazine Allergy Unknown muscle Verified 08/26/22 16:45 spasms amoxicillin AdvReac Intermediate SEVERE Verified 08/26/22 16:45 YEAST INFECTIONS METAL Allergy Unknown SKIN Uncoded 08/26/22 16:45 IRRITATION WITH EXTENDED USE Home Medications Medication Instructions Recorded Confirmed Type cholecalciferol (vitamin D3) 25 1,000 units PO HS 05/03/19 08/26/22 History mcg (1,000 unit) capsule cyanocobalamin (vitamin B-12) 1,000 mcg PO HS 05/03/19 08/26/22 History 1,000 mcg tablet fluticasone propionate 110 1 puffs inhalation BID PRN Wheezing 05/03/19 08/26/22 History mcg/actuation HFA aerosol inhaler albuterol sulfate 90 mcg/actuation 1 - 2 puff inhalation Q4H PRN 09/29/19 08/26/22 History aerosol inhaler Shortness Of Breath multivitamin 1 tab PO QAM 09/29/19 08/26/22 History carvedilol 6.25 mg tablet 6.25 mg PO BID #180 tabs 11/29/19 08/26/22 Rx aspirin 81 mg tablet,delayed 81 mg PO QAM 02/08/21 08/26/22 History release atorvastatin 40 mg tablet 40 mg PO QAM 02/08/21 08/26/22 History benzonatate 100 mg capsule 100 mg PO UD PRN Cough 02/08/21 08/26/22 History cyclobenzaprine 10 mg tablet 10 mg PO DAILY PRN Muscle Spasm 02/08/21 08/26/22 History fluticasone propionate 44 1 puff inhalation BID 02/08/21 08/26/22 History mcg/actuation HFA aerosol inhaler (Flovent HFA) lisinopril 2.5 mg tablet 2.5 mg PO QAM 02/08/21 08/26/22 History rosuvastatin 10 mg tablet (Crestor) 10 mg PO QAM 02/08/21 08/26/22 History venlafaxine 150 mg 150 mg PO QAM 02/08/21 08/26/22 History capsule,extended release 24 hr (Effexor XR) zinc sulfate 50 mg zinc (220 mg) 0 mg PO HS 02/08/21 08/26/22 History tablet liraglutide (weight loss) 3 mg/0.5 2.4 mg subcut DAILY 08/26/22 08/26/22 History mL (18 mg/3 mL) subcut pen injector (Saxenda) Patient History Medical History Bariatric surgery status UPCOMING EGD D/T FUTURE PLANNING OF BARIATRIC SX Borderline anemia Depression Family history of reaction to anesthesia N/V WITH GRANDMOTHER, SISTER, MOTHER GERD (gastroesophageal reflux disease) STATIN CAUSES THIS PER PT History of colon polyps ? [place] (myocardial infarction) 2013 / HEART CATH/NO FINDINGS Morbid obesity Nausea and vomiting after administration of anesthetic agent AFTER GALLBLADDER SX Obstructive sleep apnea, adult can't tolerate cpap/upcoming new assessment planned jun 26 2022 Surgical History H/O section History of cardiac cath [place]...2013/[place] - NO STENT(S) History of cholecystectomy Family History Mother Dementia Family/Other Obstructive sleep apnea Father Myasthenia gravis Other Family history of colonic polyps Social History Smoking Status: Never smoker Hx Alcohol Use: No Hx Substance Use: No Preferred Language: Slovenian Communication Ability: Effective Preservationist Required: No Beliefs That Will Affect Care: None Current Living Situation: Family Current Living Situation Comment: AND 4 ADULT CHILDREN Other Information That Helps Us Care for You: No Feels Safe at Home: Yes Safety Concerns: Feels Safe At This Time Assistive Devices: Hospital Bed Review of Systems Constitutional: no fever and no chills Eyes: no eye pain Ear, Nose, Mouth, Throat: no ear pain Respiratory: no cough and no dyspnea Cardiovascular: no chest pain Gastrointestinal: as per Subjective / HPI Genitourinary: no dysuria Musculoskeletal: no back pain Integumentary: no rash Neurologic: no localized weakness Physical Exam Constitutional: WD/WN, vitals as above Eyes: no conjunctival abnormality ENMT: Ears: no hearing impairment and no external ear abnormality Mouth: no oropharynx abnormality Neck: trachea midline Respiratory: normal respiratory effort; no respiratory distress and no labored breathing Cardiovascular: Rate/Rhythm: regular rate and regular rhythm Vessels: dorsalis pedis pulses present and radial pulses present Gastrointestinal (Abdomen): Abdomen is rotund but soft. It is nondistended and nonrigid. The patient had a well-healed midline incision from previous C- section. There was pain noted with deep palpation in the left upper quadrant. There is no rebound tenderness or guarding or other signs of peritonitis. Musculoskeletal: No calf tenderness Skin: no rashes Neurologic: moves all extremities Psychiatric: A+Ox3, euthymic affect Results & Data ([facility]) Vital Signs (Past 12 Hours) Vital Signs Temp Pulse Pulse Resp BP BP Pulse Ox 08/27/22 01:28 36.9 C 68 16 131/82 96 08/27/22 00:30 36.9 C 68 16 133/82 96 08/27/22 00:30 36.9 C 68 16 133/82 96 08/26/22 23:25 140/83 08/26/22 22:38 81 13 08/26/22 22:30 66 12 08/26/22 22:28 69 15 08/26/22 21:53 126/78 08/26/22 21:23 70 21 08/26/22 21:20 69 14 08/26/22 21:10 69 16 08/26/22 21:00 75 13 08/26/22 20:50 75 18 08/26/22 20:40 69 16 08/26/22 20:31 125/76 08/26/22 20:31 72 19 08/26/22 20:30 72 14 08/26/22 20:20 67 08/26/22 20:10 71 16 01/03/23 20:06 140/77 08/26/22 20:06 68 12 08/26/22 20:05 69 15 08/26/22 17:40 83 23 08/26/22 17:31 73 14 08/26/22 17:20 74 13 08/26/22 17:10 75 12 08/26/22 17:01 81 17 08/26/22 16:58 86 13 08/26/22 16:40 88 17 90 08/26/22 16:33 93 H 17 91 08/26/22 16:10 87 22 08/26/22 16:00 80 15 08/26/22 15:50 78 17 08/26/22 15:40 76 15 08/26/22 15:30 80 14 08/26/22 15:20 74 16 08/26/22 15:10 77 13 97 08/26/22 15:00 78 12 96 08/26/22 14:59 80 19 08/26/22 21:53 75 18 126/78 92 08/26/22 20:05 68 16 98 08/26/22 17:00 08/26/22 17:00 77 18 141/60 H 97 08/26/22 14:31 37.1 C 72 18 135/45 L 94 O2 Del Method 08/27/22 01:28 Room Air 08/27/22 00:30 Room Air 08/27/22 00:30 Room Air 08/26/22 23:25 08/26/22 22:38 08/26/22 22:30 08/26/22 22:28 08/26/22 21:53 08/26/22 21:23 08/26/22 21:20 08/26/22 21:10 08/26/22 21:00 08/26/22 20:50 08/26/22 20:40 08/26/22 20:31 08/26/22 20:31 08/26/22 20:30 08/26/22 20:20 08/26/22 20:10 08/26/22 20:06 08/26/22 20:06 08/26/22 20:05 08/26/22 17:40 08/26/22 17:31 08/26/22 17:20 08/26/22 17:10 08/26/22 17:01 08/26/22 16:58 08/26/22 16:40 08/26/22 16:33 08/26/22 16:10 08/26/22 16:00 08/26/22 15:50 08/26/22 15:40 08/26/22 15:30 08/26/22 15:20 08/26/22 15:10 08/26/22 15:00 08/26/22 14:59 08/26/22 21:53 Room Air 08/26/22 20:05 Room Air 08/26/22 17:00 Room Air 08/26/22 17:00 Room Air 08/26/22 14:31 Room Air PG Care Time/CCT Total # of Minutes Spent Total Time Spent with Patient: Total time spent is greater than 50% in coordination of care (as documented) at patient's floor/unit and/or counseling patient: Coding Level of Care Code INP/OBS CONSULT LVL 5, 80 MIN Diagnoses Left sided colitis K51.50
[2022-08-27] MEDS ORDERED: ALBUT/IPRATROP 3MG/0.5MG NEB 3 ML VIAL INH PRN (02:30)
[2022-08-27] MEDS ORDERED: OPTIRAY 320 500ml IV ONE (05:44)
--- NOTE | 2022-08-27 06:59 | Hospitalist Progress Note ---
Date of Service August 27, 2022 Assessment & Plan (1) Left sided colitis: Plan: #Left sided colitis CT A/P with left-sided colitis (moderate wall thickening with adjacent stranding involving [id number] transverse colon, splenic flexure and jkkispiy-rs-ecl descending colon) - similar to CT findings in 09/2019. Multiple possible etiologies: 1. Infectious colitis, most likely: positive for Flu A. Subjective fever/chills and N/V for several days is suspicious for viral vs bacterial colitis 2. Ischemic colitis: Findings suggestive of this per Radiology report. Patient had Lactate 2.6 now 1.0. HDS. Overall non toxic appearing without peritoneal signs. She does have several vascular risk factors, but is clinically improving 3. Inflammatory colitis: Possible family h/o IBD, previous bouts of diarrhea with mucus. However normal colonoscopy 4 years ago makes this less likely [] CTA AP - findings again compatible with left sided acute colitis and possible ischemic etiology - exam not consistent with ischemia [] consult surgery - no urgent operation indicated, will f/u with CTA AP results and make further recs [] CLD [] check CRP, ESR, stool calprotectin [] check procalcitonin, stool PCR [] IVF full maintenance 190 mL/hr [] PRN Zofran for nausea [] graduated PRN pain regimen: Tylenol 1g IV Q8H; Morphine 2mg IV Q4H; Dilaudid 0.25mg IV Q6H #Duodenitis Findings per CT A/P - indicative of peptic ulcer disease. [] s/p Protonix/Pepcid in ED - continue with Protonix 40mg PO daily [] f/u with PCP regarding further management #HTN Continue home Carvedilol and Lisinopril #HLD Continue home Rosuvastatin #Depression Continue home Effexor #Asthma Continue home inhalers FEN/GI: CLD, Normosol-R @190cc/hr DVT Prophylaxis: SCDs, hold chemoppx in case of need for surgery Code Status: full code Disposition: med/surg (2) Duodenitis: (3) Hypertension: (4) Hyperlipidemia: (5) Depression: (6) Asthma: Admission and Anticipated Discharge Date Admission Date: August 26, 2022 Supervising Physician Co-Signing Physician Notes I personally examined the patient and verified all dior points of history and exam, discussed case, and agree with decision making with Dr Palafox. Feeling better. Still has abdominal pain, no diarrhea for about 2 hours. Vitals noted, in general she is awake and alert pleasant no distress. HEENT n ormocephalic atraumatic mucous membranes moist. Abdomen is soft but mild diffuse tenderness no guarding rebound or rigidity Abdominal painimproving. Continue supportive care. Stable for home. I suspect this is predominantly flu mediated viral enteritis. (No hematochezia, no pain out of proportion to exam, etc.) safe off antibiotics given no overt evidence of a foodborne enteritis Subjective Patient notes that she has improved since her admission. She was having nausea and vomiting in the ED. This has improved significantly since she started having loose bowel movements. She reports continued left sided lower abdominal pain and cramping with diarrhea, but overall improvement. Review of Systems Review of Systems: See HPI Physical Exam Physical Exam: General: A&Ox3. NAD. Cooperative. Morbidly obese. Non-toxic appearing. HEENT: Atraumatic, normocephalic. Pulm: Decreased breath sounds CTAB A&P. -wheezes, -rales, -rhonchi. Symmetrical chest rise. No increase work of breathing. No respiratory distress. Cardiac: Diminished heart sounds. RRR, -mrg. Radial pulses intact and symmetrical. No LE edema. Abdominal: soft, protuberant but not distended, moderate left abdominal tenderness without guarding/rebound, hypoactive BS x 4 Skin: warm, dry, no rash Results & Data Results & Data ([facility]) Vital Signs (Past 12 Hours) Vital Signs Temp Pulse Pulse Resp BP BP Pulse Ox 08/27/22 01:28 36.9 C 68 16 131/82 96 08/27/22 00:30 36.9 C 68 16 133/82 96 08/27/22 00:30 36.9 C 68 16 133/82 96 08/26/22 23:25 140/83 08/26/22 22:38 81 13 08/26/22 22:30 66 12 08/26/22 22:28 69 15 08/26/22 21:53 126/78 08/26/22 21:23 70 21 08/26/22 21:20 69 14 08/26/22 21:10 69 16 08/26/22 21:00 75 13 08/26/22 20:50 75 18 08/26/22 20:40 69 16 08/26/22 20:31 125/76 08/26/22 20:31 72 19 08/26/22 20:30 72 14 08/26/22 20:20 67 08/26/22 20:10 71 16 08/26/22 20:06 140/77 08/26/22 20:06 68 12 08/26/22 20:05 69 15 08/26/22 21:53 75 18 126/78 92 08/26/22 20:05 68 16 98 O2 Del Method 08/27/22 01:28 Room Air 08/27/22 00:30 Room Air 08/27/22 00:30 Room Air 08/26/22 23:25 08/26/22 22:38 08/26/22 22:30 08/26/22 22:28 08/26/22 21:53 08/26/22 21:23 08/26/22 21:20 08/26/22 21:10 08/26/22 21:00 08/26/22 20:50 08/26/22 20:40 08/26/22 20:31 08/26/22 20:31 08/26/22 20:30 08/26/22 20:20 08/26/22 20:10 08/26/22 20:06 08/26/22 20:06 08/26/22 20:05 08/26/22 21:53 Room Air 08/26/22 20:05 Room Air Laboratory Results 08/26/22 08/26/22 08/26/22 Range/Units 21:49 21:49 20:44 WBC (4.8-10.8) K/ul RBC (3.93-5.22) M/uL Hgb (12.0-16.0) g/dl Hct (34.1-44.9) % MCV (80.0-100.0) fL MCH (25.0-34.0) pg MCHC (32.0-36.0) g/dL RDW Std Deviation (36.4-46.3) fL RDW Coeff of Neil (11.5-14.5) % Plt Count (130-400) K/uL MPV (9.4-12.3) fL Immature Gran % (Auto) % Neut % (Auto) % Lymph % (Auto) % [place] % (Auto) % Eos % (Auto) % Baso % (Auto) % Neut # (Auto) (1.4-6.5) K/uL Lymph # (Auto) (1.2-3.4) K/uL [place] # (Auto) (0.24-0.82) K/uL Eos # (Auto) (0-0.50) K/uL Baso # (Auto) (0-0.2) K/uL Immature Gran # (Auto) (0.00-0.02) K/uL ESR 30 (0-30) mm/hr Sodium (136-145) mmol/L Potassium (3.5-5.1) mmol/L Chloride (98-107) mmol/L Carbon Dioxide (21-32) mmol/L Anion Gap (3-11) BUN (6-23) mg/dl Creatinine (0.6-1.2) mg/dl Est Cr Clr Drug Dosing ml/min Est GFR ( Amer) ml/min Est GFR (Non-Af Amer) ml/min BUN/Creatinine Ratio (10-20) Glucose (70-99(Fasting)) mg/dl Lactate (0.4-2.0) mmol/L Calcium (8.5-10.1) mg/dl Magnesium (1.7-2.4) mg/dl Total Bilirubin (0.2-1.0) mg/dl AST (13-39) U/L ALT (7-52) U/L Alkaline Phosphatase (34-104) U/L Troponin I High Sens (0-14) pg/ml C-Reactive Protein (0-0.5) mg/dl Total Protein (6.0-8.3) gm/dl Albumin (3.4-5.0) gm/dl Globulin (2.5-4.0) gm/dl Albumin/Globulin Ratio (0.9-2) Lipase (11-82) U/L Procalcitonin (0-0.5) ng/ml Urine Color Urine Appearance (Clear) Urine pH (4.5-7.5) Ur Specific [place] (1.000-1.030) Urine Protein (Negative) Urine Glucose (UA) (Negative) Urine Ketones (Negative) Urine Blood (Negative) Urine Nitrite (Negative) Urine Bilirubin (Negative) Urine Urobilinogen (Negative) Ur Leukocyte Esterase (Negative) Stool Calprotectin Pending Stl C. cayetanensis PCR Not Detected (NotDetected) Stool Rotavirus A PCR Not Detected (NotDetected) Stl Adenov F 40/41 PCR Not Detected (NotDetected) Stool Astrovirus (PCR) Not Detected (NotDetected) Stool Campylobacter PCR Not Detected (NotDetected) Stool Cryptosporidium PCR Not Detected (NotDetected) Stl E.coli Shiga Tox PCR Not Detected (NotDetected) Stl Enterotoxigenic E PCR Not Detected (NotDetected) Stool EPEC (PCR) Not Detected (NotDetected) Stool EAEC (PCR) Not Detected (NotDetected) Stl E. histolytica PCR Not Detected (NotDetected) Stool Giardia Lamblia PCR Not Detected (NotDetected) Stool Salmonella PCR Not Detected (NotDetected) Stool Sapovirus (PCR) Not Detected (NotDetected) Stl P. shigelloides PCR Not Detected (NotDetected) Stl Shigella/EIEC PCR Not Detected (NotDetected) St Y.enterocolitica PCR Not Detected (NotDetected) Stool Vibrio (PCR) Not Detected (NotDetected) Stl Vibrio cholerae PCR Not Detected (NotDetected) Stl Norovirus GI/GII PCR Not Detected (NotDetected) SARS-CoV-2 (PCR) (Negative) Influenza Type A (PCR) (Neg) Influenza Type B (PCR) (Neg) RSV (RT-PCR) (Neg) 08/26/22 08/26/22 08/26/22 Range/Units 20:44 20:21 18:23 WBC (4.8-10.8) K/ul RBC (3.93-5.22) M/uL Hgb (12.0-16.0) g/dl Hct (34.1-44.9) % MCV (80.0-100.0) fL MCH (25.0-34.0) pg MCHC (32.0-36.0) g/dL RDW Std Deviation (36.4-46.3) fL RDW Coeff of Neil (11.5-14.5) % Plt Count (130-400) K/uL MPV (9.4-12.3) fL Immature Gran % (Auto) % Neut % (Auto) % Lymph % (Auto) % [place] % (Auto) % Eos % (Auto) % Baso % (Auto) % Neut # (Auto) (1.4-6.5) K/uL Lymph # (Auto) (1.2-3.4) K/uL [place] # (Auto) (0.24-0.82) K/uL Eos # (Auto) (0-0.50) K/uL Baso # (Auto) (0-0.2) K/uL Immature Gran # (Auto) (0.00-0.02) K/uL ESR (0-30) mm/hr Sodium (136-145) mmol/L Potassium (3.5-5.1) mmol/L Chloride (98-107) mmol/L Carbon Dioxide (21-32) mmol/L Anion Gap (3-11) BUN (6-23) mg/dl Creatinine (0.6-1.2) mg/dl Est Cr Clr Drug Dosing ml/min Est GFR ( Amer) ml/min Est GFR (Non-Af Amer) ml/min BUN/Creatinine Ratio (10-20) Glucose (70-99(Fasting)) mg/dl Lactate 1.0 2.6 H* (0.4-2.0) mmol/L Calcium (8.5-10.1) mg/dl Magnesium (1.7-2.4) mg/dl Total Bilirubin (0.2-1.0) mg/dl AST (13-39) U/L ALT (7-52) U/L Alkaline Phosphatase (34-104) U/L Troponin I High Sens (0-14) pg/ml C-Reactive Protein (0-0.5) mg/dl Total Protein (6.0-8.3) gm/dl Albumin (3.4-5.0) gm/dl Globulin (2.5-4.0) gm/dl Albumin/Globulin Ratio (0.9-2) Lipase (11-82) U/L Procalcitonin (0-0.5) ng/ml Urine Color Urine Appearance (Clear) Urine pH (4.5-7.5) Ur Specific [place] (1.000-1.030) Urine Protein (Negative) Urine Glucose (UA) (Negative) Urine Ketones (Negative) Urine Blood (Negative) Urine Nitrite (Negative) Urine Bilirubin (Negative) Urine Urobilinogen (Negative) Ur Leukocyte Esterase (Negative) Stool Calprotectin Stl C. cayetanensis PCR (NotDetected) Stool Rotavirus A PCR (NotDetected) Stl Adenov F 40/41 PCR (NotDetected) Stool Astrovirus (PCR) (NotDetected) Stool Campylobacter PCR (NotDetected) Stool Cryptosporidium PCR (NotDetected) Stl E.coli Shiga Tox PCR (NotDetected) Stl Enterotoxigenic E PCR (NotDetected) Stool EPEC (PCR) (NotDetected) Stool EAEC (PCR) (NotDetected) Stl E. histolytica PCR (NotDetected) Stool Giardia Lamblia PCR (NotDetected) Stool Salmonella PCR (NotDetected) Stool Sapovirus (PCR) (NotDetected) Stl P. shigelloides PCR (NotDetected) Stl Shigella/EIEC PCR (NotDetected) St Y.enterocolitica PCR (NotDetected) Stool Vibrio (PCR) (NotDetected) Stl Vibrio cholerae PCR (NotDetected) Stl Norovirus GI/GII PCR (NotDetected) SARS-CoV-2 (PCR) NEGATIVE (Negative) Influenza Type A (PCR) Positive A* (Neg) Influenza Type B (PCR) Negative (Neg) RSV (RT-PCR) Negative (Neg) 08/26/22 08/26/22 08/26/22 Range/Units 17:56 15:25 15:25 WBC (4.8-10.8) K/ul RBC (3.93-5.22) M/uL Hgb (12.0-16.0) g/dl Hct (34.1-44.9) % MCV (80.0-100.0) fL MCH (25.0-34.0) pg MCHC (32.0-36.0) g/dL RDW Std Deviation (36.4-46.3) fL RDW Coeff of Neil (11.5-14.5) % Plt Count (130-400) K/uL MPV (9.4-12.3) fL Immature Gran % (Auto) % Neut % (Auto) % Lymph % (Auto) % [place] % (Auto) % Eos % (Auto) % Baso % (Auto) % Neut # (Auto) (1.4-6.5) K/uL Lymph # (Auto) (1.2-3.4) K/uL [place] # (Auto) (0.24-0.82) K/uL Eos # (Auto) (0-0.50) K/uL Baso # (Auto) (0-0.2) K/uL Immature Gran # (Auto) (0.00-0.02) K/uL ESR (0-30) mm/hr Sodium (136-145) mmol/L Potassium (3.5-5.1) mmol/L Chloride (98-107) mmol/L Carbon Dioxide (21-32) mmol/L Anion Gap (3-11) BUN (6-23) mg/dl Creatinine (0.6-1.2) mg/dl Est Cr Clr Drug Dosing ml/min Est GFR ( Amer) ml/min Est GFR (Non-Af Amer) ml/min BUN/Creatinine Ratio (10-20) Glucose (70-99(Fasting)) mg/dl Lactate (0.4-2.0) mmol/L Calcium (8.5-10.1) mg/dl Magnesium (1.7-2.4) mg/dl Total Bilirubin (0.2-1.0) mg/dl AST (13-39) U/L ALT (7-52) U/L Alkaline Phosphatase (34-104) U/L Troponin I High Sens (0-14) pg/ml C-Reactive Protein 3.06 H (0-0.5) mg/dl Total Protein (6.0-8.3) gm/dl Albumin (3.4-5.0) gm/dl Globulin (2.5-4.0) gm/dl Albumin/Globulin Ratio (0.9-2) Lipase (11-82) U/L Procalcitonin < 0.05 (0-0.5) ng/ml Urine Color Yellow Urine Appearance Clear (Clear) Urine pH 5.0 (4.5-7.5) Ur Specific [place] 1.045 H (1.000-1.030) Urine Protein Negative (Negative) Urine Glucose (UA) Negative (Negative) Urine Ketones Negative (Negative) Urine Blood Negative (Negative) Urine Nitrite Negative (Negative) Urine Bilirubin Negative (Negative) Urine Urobilinogen Negative (Negative) Ur Leukocyte Esterase Negative (Negative) Stool Calprotectin Stl C. cayetanensis PCR (NotDetected) Stool Rotavirus A PCR (NotDetected) Stl Adenov F 40/41 PCR (NotDetected) Stool Astrovirus (PCR) (NotDetected) Stool Campylobacter PCR (NotDetected) Stool Cryptosporidium PCR (NotDetected) Stl E.coli Shiga Tox PCR (NotDetected) Stl Enterotoxigenic E PCR (NotDetected) Stool EPEC (PCR) (NotDetected) Stool EAEC (PCR) (NotDetected) Stl E. histolytica PCR (NotDetected) Stool Giardia Lamblia PCR (NotDetected) Stool Salmonella PCR (NotDetected) Stool Sapovirus (PCR) (NotDetected) Stl P. shigelloides PCR (NotDetected) Stl Shigella/EIEC PCR (NotDetected) St Y.enterocolitica PCR (NotDetected) Stool Vibrio (PCR) (NotDetected) Stl Vibrio cholerae PCR (NotDetected) Stl Norovirus GI/GII PCR (NotDetected) SARS-CoV-2 (PCR) (Negative) Influenza Type A (PCR) (Neg) Influenza Type B (PCR) (Neg) RSV (RT-PCR) (Neg) 08/26/22 08/26/22 08/26/22 Range/Units 15:25 15:25 15:25 WBC 9.89 (4.8-10.8) K/ul RBC 5.36 H (3.93-5.22) M/uL Hgb 15.7 (12.0-16.0) g/dl Hct 46.4 H (34.1-44.9) % MCV 86.6 (80.0-100.0) fL MCH 29.3 (25.0-34.0) pg MCHC 33.8 (32.0-36.0) g/dL RDW Std Deviation 42.7 (36.4-46.3) fL RDW Coeff of Neil 13.5 (11.5-14.5) % Plt Count 263 (130-400) K/uL MPV 9.1 L (9.4-12.3) fL Immature Gran % (Auto) 0.3 % Neut % (Auto) 81.3 % Lymph % (Auto) 12.6 % [place] % (Auto) 5.2 % Eos % (Auto) 0.3 % Baso % (Auto) 0.3 % Neut # (Auto) 8.04 H (1.4-6.5) K/uL Lymph # (Auto) 1.25 (1.2-3.4) K/uL [place] # (Auto) 0.51 (0.24-0.82) K/uL Eos # (Auto) 0.03 (0-0.50) K/uL Baso # (Auto) 0.03 (0-0.2) K/uL Immature Gran # (Auto) 0.03 H (0.00-0.02) K/uL ESR (0-30) mm/hr Sodium 135 L (136-145) mmol/L Potassium 4.6 (3.5-5.1) mmol/L Chloride 105 (98-107) mmol/L Carbon Dioxide 22 (21-32) mmol/L Anion Gap 8 (3-11) BUN 18 (6-23) mg/dl Creatinine 0.66 (0.6-1.2) mg/dl Est Cr Clr Drug Dosing 141.0 ml/min Est GFR ( Amer) 114.5 ml/min Est GFR (Non-Af Amer) 98.8 ml/min BUN/Creatinine Ratio 27.3 H (10-20) Glucose 115 H (70-99(Fasting)) mg/dl Lactate (0.4-2.0) mmol/L Calcium 9.5 (8.5-10.1) mg/dl Magnesium 2.6 H (1.7-2.4) mg/dl Total Bilirubin 0.5 (0.2-1.0) mg/dl AST 25 (13-39) U/L ALT 21 (7-52) U/L Alkaline Phosphatase 106 H (34-104) U/L Troponin I High Sens 4.6 (0-14) pg/ml C-Reactive Protein (0-0.5) mg/dl Total Protein 7.5 (6.0-8.3) gm/dl Albumin 3.9 (3.4-5.0) gm/dl Globulin 3.6 (2.5-4.0) gm/dl Albumin/Globulin Ratio 1.1 (0.9-2) Lipase 37 (11-82) U/L Procalcitonin (0-0.5) ng/ml Urine Color Urine Appearance (Clear) Urine pH (4.5-7.5) Ur Specific [place] (1.000-1.030) Urine Protein (Negative) Urine Glucose (UA) (Negative) Urine Ketones (Negative) Urine Blood (Negative) Urine Nitrite (Negative) Urine Bilirubin (Negative) Urine Urobilinogen (Negative) Ur Leukocyte Esterase (Negative) Stool Calprotectin Stl C. cayetanensis PCR (NotDetected) Stool Rotavirus A PCR (NotDetected) Stl Adenov F 40/41 PCR (NotDetected) Stool Astrovirus (PCR) (NotDetected) Stool Campylobacter PCR (NotDetected) Stool Cryptosporidium PCR (NotDetected) Stl E.coli Shiga Tox PCR (NotDetected) Stl Enterotoxigenic E PCR (NotDetected) Stool EPEC (PCR) (NotDetected) Stool EAEC (PCR) (NotDetected) Stl E. histolytica PCR (NotDetected) Stool Giardia Lamblia PCR (NotDetected) Stool Salmonella PCR (NotDetected) Stool Sapovirus (PCR) (NotDetected) Stl P. shigelloides PCR (NotDetected) Stl Shigella/EIEC PCR (NotDetected) St Y.enterocolitica PCR (NotDetected) Stool Vibrio (PCR) (NotDetected) Stl Vibrio cholerae PCR (NotDetected) Stl Norovirus GI/GII PCR (NotDetected) SARS-CoV-2 (PCR) (Negative) Influenza Type A (PCR) (Neg) Influenza Type B (PCR) (Neg) RSV (RT-PCR) (Neg) Diagnostic Findings Chest X-Ray 08/26/22 14:48 SINGLE VIEW CHEST CLINICAL HISTORY: Atypical chest pain. FINDINGS: An AP, portable, upright chest radiograph is compared to study dated 06/27/2022. The cardiomediastinal silhouette is unremarkable. The lungs and pleural spaces are clear. No pneumothorax is seen. The bony thorax is grossly intact. IMPRESSION: No active disease in the chest. Abdomen/Pelvis CT 08/26/22 15:20 CT OF THE ABDOMEN AND PELVIS WITH CONTRAST CLINICAL HISTORY: Left-sided abdominal pain. COMPARISON STUDY: CT of the abdomen and pelvis September 29, 2019. TECHNIQUE: Following IV administration of 114 mL of Optiray, axial images of the abdomen and pelvis were obtained from the lung bases to the proximal femurs. Images were reviewed in the axial, sagittal, and coronal planes. IV contrast was administered without complication. Automated exposure control was utilized for the study. A dose lowering technique was utilized adhering to the principles of ALARA. CT DOSE: 2001.74 mGy.cm FINDINGS: Lung bases are unremarkable. No pneumatosis, free air or portal venous gas is present. There is no biliary ductal dilatation status post cholecystectomy. Note is made of moderate stranding and a small amount of fluid adjacent to the proximal duodenum. There is no extraluminal gas or fluid collection. Spleen, adrenal glands and kidneys are unremarkable with the exception of a 1.2 cm left renal cyst. No hydronephrosis. There is no abdominal or pelvic lymphadenopathy. Sigmoid diverticulosis is noted without evidence for acute diverticulitis. Moderate wall thickening with adjacent stranding involving the mid to distal transverse colon, splenic flexure and proximal to mid descending colon is again noted. Similar findings were shown on CT of September 29, 2019. There is no abscess. There is no free air. No evidence for a bowel obstruction. A moderate amount stool within the colon and rectum is present. The major vasculature is patent. IMPRESSION: 1. Findings consistent with a left-sided colitis, similar to CT of September 29, 2019. Although nonspecific, the appearance raises the possibility of ischemic colitis. 2. Fluid and stranding adjacent to the proximal duodenum. This favors duodenitis/peptic ulcer disease. No free air. No extraluminal gas. 3. No bowel obstruction. Moderate amount of stool within the colon and rectum. Abdomen/Pelvis CTA 08/27/22 05:00 CT angio abdomen pelvis w con CLINICAL HISTORY: 56 years-old Female with ?ischemic colitis acute generalized abdominal pain with reported colitis COMPARISON STUDY: CT abdomen and pelvis 08/26/2022, September 29, 2019. TECHNIQUE: Following the IV administration of 106 cc of Optiray, CT angiogram of the abdomen and pelvis was performed from the lung bases the proximal femora. Images are reviewed in the axial, sagittal, and coronal planes. 3-D MIPS images are created and assessed. All measurements were obtained according to NASCET criteria. IV contrast was administered without complication. A dose lowering technique was utilized adhering to the principles of ALARA. CT DOSE: 1901.69 mGy.cm FINDINGS: CTA: No abdominal aortic aneurysm, dissection or significant atherosclerotic vascular disease. Iliac and imaged femoral arteries appear patent. The celiac trunk, renal arteries, superior and inferior mesenteric arteries appear patent. CT ABDOMEN/PELVIS: The lung bases appear. Clear with mild bronchial wall thickening. No pneumatosis, free air or portal venous gas is present. There is no biliary ductal dilatation status post cholecystectomy. Note is made of moderate stranding and a small amount of fluid adjacent to the proximal duodenum. There is no extraluminal gas or fluid collection. Spleen, adrenal glands and kidneys are unremarkable with the exception of a 1.2 cm left renal cyst. No hydronephrosis. There is no abdominal or pelvic lymphadenopathy. Sigmoid diverticulosis is noted without evidence for acute diverticulitis. Moderate wall thickening with adjacent stranding involving the mid to distal transverse colon, splenic flexure and proximal to mid descending colon is again noted with the degree of wall thickening mildly progressed. Similar findings were seen on the 2019 exam. There is no abscess. There is no free air. No evidence for a bowel obstruction. A moderate amount stool within the colon and rectum is present. Unremarkable soft tissues. No acute fracture identified. IMPRESSION: 1. Findings are again compatible with an acute left-sided colitis, the degree of wall thickening and slightly progressed from yesterday's study. Correlate clinically to exclude ischemic etiology. 2. Unremarkable CTA. 3. Wall thickening of the duodenum with adjacent inflammatory stranding is again suggestive of a nonspecific duodenitis versus peptic ulcer disease. 4. No pneumoperitoneum or abscess. Resident Activity Tracking Resident Involvement: Resident Care Provided Care Provided: Adult [facility]
--- NOTE | 2022-08-27 08:17 | CT Scan Report ---
CT angio abdomen pelvis w con CLINICAL HISTORY: 56 years-old Female with ?ischemic colitis acute generalized abdominal pain with reported colitis COMPARISON STUDY: CT abdomen and pelvis 08/26/2022, September 29, 2019. TECHNIQUE: Following the IV administration of 106 cc of Optiray, CT angiogram of the abdomen and pelv is was performed from the lung bases the proximal femora. Images are reviewed in the axial, sagittal, and coronal planes. 3-D MIPS images are created and assessed. All measurements were obtained accordi ng to NASCET criteria. IV contrast was administered without complication. A dose lowering technique was utilized adhering to the principles of ALARA. CT DOSE: 1901.69 mGy.cm FINDINGS: CTA: No abdominal aortic aneurysm, dissection or significant atherosclerotic vascular disease. Iliac and i lynda femoral arteries appear patent. The celiac trunk, renal arteries, superior and inferior mesente cammie arteries appear patent. CT ABDOMEN/PELVIS: The lung bases appear. Clear with mild bronchial wall thickening. No pneumatosis, free air or portal venous gas is present. There is no biliary ductal dilatation status post cholecystectomy. Note is mad e of moderate stranding and a small amount of fluid adjacent to the proximal duodenum. There is no ex traluminal gas or fluid collection. Spleen, adrenal glands and kidneys are unremarkable with the exce ption of a 1.2 cm left renal cyst. No hydronephrosis. There is no abdominal or pelvic lymphadenopathy . Sigmoid diverticulosis is noted without evidence for acute diverticulitis. Moderate wall thickening with adjacent stranding involving the mid to distal transverse colon, splenic flexure and proximal t o mid descending colon is again noted with the degree of wall thickening mildly progressed. Similar f indings were seen on the 2019 exam. There is no abscess. There is no free air. No evidence for a conner l obstruction. A moderate amount stool within the colon and rectum is present. Unremarkable soft tiss ues. No acute fracture identified. IMPRESSION: 1. Findings are again compatible with an acute left-sided colitis, the degree of wall thickening and slightly progressed from yesterday's study. Correlate clinically to exclude ischemic etiology. 2. Unremarkable CTA. 3. Wall thickening of the duodenum with adjacent inflammatory stranding is again suggestive of a nons pecific duodenitis versus peptic ulcer disease. 4. No pneumoperitoneum or abscess. ACT 112: Negative or not required by law. The above report was generated using voice recognition software. It may contain grammatical, syntax o r spelling errors. Electronically signed by: Samuel Castaneda M.D. 08/27/2022 8:16 AM
[2022-08-27 09:49] LABS: Albumin Globulin Ratio 1.2 (0.9-2); Albumin Level 3.4 gm/dl (3.4-5.0); BUN Creatinine Ratio 18.3 (10-20); Bilirubin,Total 0.4 mg/dl (0.2-1.0); Calcium 7.5 mg/dl (8.5-10.1); Creatinine Clr Calc Pharmacy 129.6 ml/min; Est GFR (African American) 110.4 ml/min; Est GFR (Non-African American) 95.2 ml/min; Globulin 2.8 gm/dl (2.5-4.0); Magnesium 2.2 mg/dl (1.7-2.4); Potassium 3.9 mmol/L (3.5-5.1); Total Protein 6.2 gm/dl (6.0-8.3)
[2022-08-27 10:30] LABS: Basophils # (auto) 0.02 K/uL (0-0.2); Basophils % (auto) 0.3 %; Eosinophils # (auto) 0.01 K/uL (0-0.50); Eosinophils % (auto) 0.1 %; Hematocrit (blood only) 38.5 % (34.1-44.9); Hemoglobin 12.7 g/dl (12.0-16.0); Immature Granulocytes # (auto) 0.01 K/uL (0.00-0.02); Immature Granulocytes % (auto) 0.1 %; Lymphocytes # (auto) 1.55 K/uL (1.2-3.4); Mean Corpuscular Hemoglobin 28.8 pg (25.0-34.0); Mean Corpuscular Volume 87.3 fL (80.0-100.0); Mean Platelet Volume 9.2 fL (9.4-12.3); Monocytes # (auto) 0.74 K/uL (0.24-0.82); Neutrophils % (auto) 65.5 %; Platelet Count 200 K/uL (130-400); RDW Coefficient of Variation 13.6 % (11.5-14.5); RDW Standard Deviation 44.2 fL (36.4-46.3); Red Blood Count 4.41 M/uL (3.93-5.22); White Blood Count 6.73 K/ul (4.8-10.8)
[2022-08-27] MEDS: PANTOprazole 40 MG TAB PO SCH (11:29)
[2022-08-27] MEDS: lisinopril 2.5 MG TAB PO SCH (11:29)
[2022-08-27] MEDS: VENLAFAXINE HCL XR 150 MG CAPXR PO SCH (11:30)
[2022-08-27] MEDS: ROSUVASTATIN CALCIUM 10 MG TAB PO SCH (11:30)
[2022-08-27] MEDS: ASPIRIN 81 MG ECTAB PO SCH (11:30)
[2022-08-27] MEDS: FLUTICASONE FUROATE 100MCG 14 PUFFS/INHALER INH SCH (11:31)
--- NOTE | 2022-08-27 21:05 | Billing Data ---
Date of Service August 27, 2022 Coding Level of Care Code 61841 SUB INP/OBS CARE
--- NOTE | 2022-08-28 07:39 | Hospitalist Progress Note ---
Date of Service August 28, 2022 Assessment & Plan (1) Left sided colitis: Plan: Ms. Farias is a 56 y/o female with a PMHx of AK, BMI 54.7 with plans for gastric bypass sx, HTN, HLD, metabolic syndrome, asthma and depression who presented to [facility] ED on 08/26 for worsening left-sided abdominal pain, nausea/vomiting, and lack of BMs for 3 days admitted for observation and further workup clinically improving. #Left sided colitis CT A/P with left-sided colitis (moderate wall thickening with adjacent stranding involving nbr-hj-vaovhu transverse colon, splenic flexure and trxkziwy-to-gix descending colon) - similar to CT findings in 09/2019. Multiple possible etiolog ies though most likely infectious colitis as patient is positive for flu A and had f/c/n/v. Initially treat with abx since d/c as likely viral in nature. There were findings consistent with possible ischemic colitis on CT A/P and CTA A&P - no visible clots. Exam is reassuring as patient tender and non-toxic appearing. Initial lactate 2.6, improved to 1. CRP 3.06, ESR - 30, FOBT - positive, procalc itonin < 0.05, stool PCR - negative. Stool calprotectin - pending. Surgery consulted - no urgent operation indicated, they consulted GI consulted by surgery 09/25 heme+ stool. Rec colonoscopy and endoscopy outpatient in 6 weeks. [] FLD, tolerating PO [] PRN Zofran for nausea [] graduated PRN pain regimen: Tylenol 1g IV Q8H; Morphine 2mg IV Q4H; Dilaudid 0.25mg IV Q6H --> patient not requiring much pain management #Duodenitis Findings per CT A/P - indicative of peptic ulcer disease. Protonix 40 mg PO daily. F/u outpatient with PCP. #HTN Continue home Carvedilol and Lisinopril #HLD Continue home Rosuvastatin #Depression Continue home Effexor #Asthma Continue home inhalers FEN/GI: FLD, tolerating PO DVT Prophylaxis: SCDs, hold chemoppx in case of need for surgery Code Status: full code Disposition: med/surg (2) Duodenitis: (3) Hypertension: (4) Hyperlipidemia: (5) Depression: (6) Asthma: Admission and Anticipated Discharge Date Admission Date: August 26, 2022 Supervising Physician Co-Signing Physician Notes I personally examined the patient and verified all dior points of history and exam, discussed case, and agree with decision making with Dr Palafox. pain worse- some explosive diarrhea ~2p, none again when i revisit ~5p. no blood (was green) Vitals noted, in general she is awake and alert pleasant no distress. HEENT normocephalic atraumatic mucous membranes moist. Abdomen is soft mod diffuse tenderness worse LLQ/L middle abdomen no guarding rebound or rigidity Abdominal painimproving. Continue supportive care. Stable for home. I suspect this is predominantly flu mediated viral enteritis. (No hematochezia, no pain out of proportion to exam, etc.) has actually been off antibiotics for a day given no overt evidence of a foodborne enteritis; for colo ~6-8wks. continue pain control and supportive care for now. if doesn't start to improve by tomorrow then may revisit risk/benefit of abx Subjective Patient feeling okay this AM. Had a BM yesterday evening that had some red /orange in it, unsure if blood or food dyes. Otherwise improved and tolerating PO. Review of Systems Review of Systems: See HPI Physical Exam Physical Exam: General: A&Ox3. NAD. Cooperative. Morbidly obese. Non-toxic appearing. HEENT: Atraumatic, normocephalic. Pulm: Decreased breath sounds CTAB A&P. -wheezes, -rales, -rhonchi. Symmetrical chest rise. No increase work of breathing. No respiratory distress. Cardiac: Diminished heart sounds. RRR, -mrg. Radial pulses intact and symmetrical. No LE edema. Abdominal: soft, protuberant but not distended, non-tender, hypoactive BS x 4 Skin: warm, dry, no rash Results & Data Results & Data ([facility]) Vital Signs (Past 12 Hours) Vital Signs Temp Pulse Resp BP Pulse Ox O2 Del Method 08/28/22 07:25 37.0 C 69 16 110/59 L 95 Room Air 08/27/22 19:46 36.7 C 72 16 139/80 93 Room Air Laboratory Results 08/28/22 08/28/22 08/27/22 Range/Units 08:43 08:43 12:00 WBC 5.86 (4.8-10.8) K/ul RBC 4.35 (3.93-5.22) M/uL Hgb 12.4 (12.0-16.0) g/dl Hct 38.5 (34.1-44.9) % MCV 88.5 (80.0-100.0) fL MCH 28.5 (25.0-34.0) pg MCHC 32.2 (32.0-36.0) g/dL RDW Std Deviation 43.8 (36.4-46.3) fL RDW Coeff of Neil 13.4 (11.5-14.5) % Plt Count 194 (130-400) K/uL MPV 9.1 L (9.4-12.3) fL Immature Gran % (Auto) % Neut % (Auto) % Lymph % (Auto) % Pine % (Auto) % Eos % (Auto) % Baso % (Auto) % Neut # (Auto) (1.4-6.5) K/uL Lymph # (Auto) (1.2-3.4) K/uL Pine # (Auto) (0.24-0.82) K/uL Eos # (Auto) (0-0.50) K/uL Baso # (Auto) (0-0.2) K/uL Immature Gran # (Auto) (0.00-0.02) K/uL Sodium 137 (136-145) mmol/L Potassium 3.6 (3.5-5.1) mmol/L Chloride 105 (98-107) mmol/L Carbon Dioxide 26 (21-32) mmol/L Anion Gap 6 (3-11) BUN 6 (6-23) mg/dl Creatinine 0.49 L (0.6-1.2) mg/dl Est Cr Clr Drug Dosing 187.8 ml/min Est GFR ( Amer) 126.2 ml/min Est GFR (Non-Af Amer) 108.9 ml/min BUN/Creatinine Ratio 12.2 (10-20) Glucose 110 H (70-99(Fasting)) mg/dl Calcium 7.4 L (8.5-10.1) mg/dl Total Bilirubin 0.4 (0.2-1.0) mg/dl AST 22 (13-39) U/L ALT 18 (7-52) U/L Alkaline Phosphatase 62 (34-104) U/L Total Protein 6.1 (6.0-8.3) gm/dl Albumin 3.3 L (3.4-5.0) gm/dl Globulin 2.8 (2.5-4.0) gm/dl Albumin/Globulin Ratio 1.2 (0.9-2) Stool Occult Bld Scrn Positive A (Negative) 08/27/22 Range/Units 08:26 WBC 6.73 (4.8-10.8) K/ul RBC 4.41 (3.93-5.22) M/uL Hgb 12.7 D (12.0-16.0) g/dl Hct 38.5 (34.1-44.9) % MCV 87.3 (80.0-100.0) fL MCH 28.8 (25.0-34.0) pg MCHC 33.0 (32.0-36.0) g/dL RDW Std Deviation 44.2 (36.4-46.3) fL RDW Coeff of Neil 13.6 (11.5-14.5) % Plt Count 200 (130-400) K/uL MPV 9.2 L (9.4-12.3) fL Immature Gran % (Auto) 0.1 % Neut % (Auto) 65.5 % Lymph % (Auto) 23.0 % Pine % (Auto) 11.0 % Eos % (Auto) 0.1 % Baso % (Auto) 0.3 % Neut # (Auto) 4.40 (1.4-6.5) K/uL Lymph # (Auto) 1.55 (1.2-3.4) K/uL Pine # (Auto) 0.74 (0.24-0.82) K/uL Eos # (Auto) 0.01 (0-0.50) K/uL Baso # (Auto) 0.02 (0-0.2) K/uL Immature Gran # (Auto) 0.01 (0.00-0.02) K/uL Sodium (136-145) mmol/L Potassium (3.5-5.1) mmol/L Chloride (98-107) mmol/L Carbon Dioxide (21-32) mmol/L Anion Gap (3-11) BUN (6-23) mg/dl Creatinine (0.6-1.2) mg/dl Est Cr Clr Drug Dosing ml/min Est GFR ( Amer) ml/min Est GFR (Non-Af Amer) ml/min BUN/Creatinine Ratio (10-20) Glucose (70-99(Fasting)) mg/dl Calcium (8.5-10.1) mg/dl Total Bilirubin (0.2-1.0) mg/dl AST (13-39) U/L ALT (7-52) U/L Alkaline Phosphatase (34-104) U/L Total Protein (6.0-8.3) gm/dl Albumin (3.4-5.0) gm/dl Globulin (2.5-4.0) gm/dl Albumin/Globulin Ratio (0.9-2) Stool Occult Bld Scrn (Negative) Resident Activity Tracking Resident Involvement: Resident Care Provided Care Provided: Adult [facility]
--- NOTE | 2022-08-28 07:54 | Surgery Progress Note ---
Date of Service August 28, 2022 Assessment & Plan (1) Left sided colitis: Plan: Patient here with concern for ischemic left sided colitis labs this morning are pending. vital signs are stable symptoms improved this AM, abdomen soft and non tender at this time Awaiting GI input Continue supportive care and clears for now, consider slow diet advancement as symptoms improve and pending GI recs No plans for acute surgical intervention Admission and Anticipated Discharge Date Admission Date: August 26, 2022 Supervising Physician Co-Signing Physician Notes Patient seen and examined, labs reviewed, agree with above. 56-year-old morbidly obese female admitted after 4 days of influenza with abdominal discomfort and diarrhea. Found to have colitis, possibly ischemic at her splenic flexure. She continues to have multiple loose bowel movements and is still having some abdominal discomfort and cramping. On exam she is afebrile stable vitals. Her abdomen is soft, tender to palpation in the left upper quadrant but no guarding. Labs are normal. GI has seen the patient and is recommending outpatient EDG for her duodenitis and colonoscopy for findings on CT in 6 to 8 weeks after her symptoms improved. We will continue supportive care with an antibiotics. No indication for emergent surgery at this time. S urgery will follow peripherally, call with questions or concerns. Subjective Patient feeling okay this AM. Describes an episode of pain yesterday evening on the L side that she received pain medication for. Pain today is much improved. She is starting to pass flatus. Had a BM yesterday evening that had some red/orange in it, unsure if blood or food dyes. Otherwise doing okay with clears, no n/v. Physical Exam Physical Exam: awake/alert, no distress Respiratory: normal respiratory effort Gastrointestinal (Abdomen): Inspection/Auscultation: abdomen not distended Percussion/Palpation: abdomen soft; abdomen nontender Results & Data ([facility]) Vital Signs (Past 12 Hours) Vital Signs Temp Pulse Resp BP Pulse Ox O2 Del Method 08/28/22 07:25 37.0 C 69 16 110/59 L 95 Room Air PG Care Time/CCT Total # of Minutes Spent Total Time Spent with Patient: Total time spent is greater than 50% in coordination of care (as documented) at patient's floor/unit and/or counseling patient: Coding Level of Care Code 62655 SUB INP/OBS CARE 09/17MIN Diagnoses Left sided colitis K51.50
[2022-08-28] MEDS: PANTOprazole 40 MG TAB PO SCH ×2 (08:36→19:57)
[2022-08-28] MEDS: FLUTICASONE FUROATE 100MCG 14 PUFFS/INHALER INH SCH (08:36)
[2022-08-28] MEDS: ROSUVASTATIN CALCIUM 10 MG TAB PO SCH (08:37)
[2022-08-28] MEDS: lisinopril 2.5 MG TAB PO SCH (08:37)
[2022-08-28] MEDS: ASPIRIN 81 MG ECTAB PO SCH (08:37)
[2022-08-28] MEDS: VENLAFAXINE HCL XR 150 MG CAPXR PO SCH (08:37)
[2022-08-28] MEDS: carvediloL 6.25 MG TAB PO SCH ×2 (08:39→19:58)
[2022-08-28] MEDS: OSELTAMIVIR PHOSPHATE 75 MG CAP PO SCH ×2 (08:39→19:57)
[2022-08-28 09:21] LABS: Hematocrit (blood only) 38.5 % (34.1-44.9); Hemoglobin 12.4 g/dl (12.0-16.0); Mean Corpuscular Hemoglobin 28.5 pg (25.0-34.0); Mean Corpuscular Hgb Conc 32.2 g/dL (32.0-36.0); Mean Corpuscular Volume 88.5 fL (80.0-100.0); Mean Platelet Volume 9.1 fL (9.4-12.3); Platelet Count 194 K/uL (130-400); RDW Coefficient of Variation 13.4 % (11.5-14.5); RDW Standard Deviation 43.8 fL (36.4-46.3); Red Blood Count 4.35 M/uL (3.93-5.22); White Blood Count 5.86 K/ul (4.8-10.8)
[2022-08-28 09:44] LABS: Albumin Globulin Ratio 1.2 (0.9-2); Albumin Level 3.3 gm/dl (3.4-5.0); BUN Creatinine Ratio 12.2 (10-20); Bilirubin,Total 0.4 mg/dl (0.2-1.0); Calcium 7.4 mg/dl (8.5-10.1); Creatinine Clr Calc Pharmacy 187.8 ml/min; Est GFR (African American) 126.2 ml/min; Est GFR (Non-African American) 108.9 ml/min; Globulin 2.8 gm/dl (2.5-4.0); Potassium 3.6 mmol/L (3.5-5.1); Total Protein 6.1 gm/dl (6.0-8.3)
--- NOTE | 2022-08-28 11:00 | Gastrointestinal Consultation ---
Date of Consultation August 28, 2022 Assessment & Plan (1) Left sided colitis: Ischemic vs viral vs inflammatory vs other -Colonoscopy in 6-8 weeks -Diet as tolerated (2) Duodenitis: -Pantoprazole 40 mg BID -EGD as outpatient when she has colonoscopy in 6-8 weeks -Avoid NSAIDs History of Present Illness Reason for Consultation: Possible Ischemic Colitis Attending Physician: Guerrero Neri DO History of Present Illness Patient is a 56 yo female with PMH of morbid obesity, HTN, HLD, metabolic syndrome, asthma, & depression who presented to [facility] ED on 08/26 due to left sided abdominal pain that she reports began abruptly at home. She notes associated nausea & vomiting at the time of onset. She notes some constipation x 3 days prior to the onset of pain. She denies rectal bleeding. She had a colonoscopy in 2017 with [facility] that indicated 2 tubular adenomas. She denies family history of IBD or GI malignancy. She is a nonsmoker. In the ED, she was noted to have a serum lactate of 2.6. This did improve to 1.[address] of the abdomen showed a left sided colitis. A CTA suggested possible ischemic colitis, but no other vascular abnormalities were noted on CTA. Of note, she was noted to have questionable PUD vs duodenitis on CTA. She notes a history of GERD. She does not appear to be on PPI therapy. She notes she was supposed to have an outpatient EGD but this had not yet been scheduled. She initially received IV antibiotics, IV Morphine, Zofran, Pepcid, Protonix, Dicyclomine & IV fluids. H/H 12.4/38.5. Allergies Allergy/AdvReac Type Severity Reaction Status Date / Time latex Allergy Mild ITCHINESS Verified 08/26/22 16:45 adhesive tape Allergy Unknown SKIN Verified 08/26/22 16:45 IRRITATION metronidazole Allergy Unknown PT DOESN'T Verified 08/26/22 16:45 REMEMBER REACTION prochlorperazine Allergy Unknown muscle Verified 08/26/22 16:45 spasms amoxicillin AdvReac Intermediate SEVERE Verified 08/26/22 16:45 YEAST INFECTIONS METAL Allergy Unknown SKIN Uncoded 08/26/22 16:45 IRRITATION WITH EXTENDED USE Home Medications Medication Instructions Recorded Confirmed Type cholecalciferol (vitamin D3) 25 1,000 units PO HS 05/03/19 08/26/22 History mcg (1,000 unit) capsule cyanocobalamin (vitamin B-12) 1,000 mcg PO HS 05/03/19 08/26/22 History 1,000 mcg tablet fluticasone propionate 110 1 puffs inhalation BID PRN Wheezing 05/03/19 08/26/22 History mcg/actuation HFA aerosol inhaler albuterol sulfate 90 mcg/actuation 1 - 2 puff inhalation Q4H PRN 09/29/19 08/26/22 History aerosol inhaler Shortness Of Breath multivitamin 1 tab PO QAM 09/29/19 08/26/22 History carvedilol 6.25 mg tablet 6.25 mg PO BID #180 tabs 11/29/19 08/26/22 Rx aspirin 81 mg tablet,delayed 81 mg PO QAM 02/08/21 08/26/22 History release atorvastatin 40 mg tablet 40 mg PO QAM 02/08/21 08/26/22 History benzonatate 100 mg capsule 100 mg PO UD PRN Cough 02/08/21 08/26/22 History cyclobenzaprine 10 mg tablet 10 mg PO DAILY PRN Muscle Spasm 02/08/21 08/26/22 History fluticasone propionate 44 1 puff inhalation BID 02/08/21 08/26/22 History mcg/actuation HFA aerosol inhaler (Flovent HFA) lisinopril 2.5 mg tablet 2.5 mg PO QAM 02/08/21 08/26/22 History rosuvastatin 10 mg tablet (Crestor) 10 mg PO QAM 02/08/21 08/26/22 History venlafaxine 150 mg 150 mg PO QAM 02/08/21 08/26/22 History capsule,extended release 24 hr (Effexor XR) zinc sulfate 50 mg zinc (220 mg) 0 mg PO HS 02/08/21 08/26/22 History tablet liraglutide (weight loss) 3 mg/0.5 2.4 mg subcut DAILY 08/26/22 08/26/22 History mL (18 mg/3 mL) subcut pen injector (Saxenda) Patient History Medical History Bariatric surgery status UPCOMING EGD D/T FUTURE PLANNING OF BARIATRIC SX Borderline anemia Depression Family history of reaction to anesthesia N/V WITH GRANDMOTHER, SISTER, MOTHER GERD (gastroesophageal reflux disease) STATIN CAUSES THIS PER PT History of colon polyps ? PR (myocardial infarction) 2014 / HEART CATH/NO FINDINGS Morbid obesity Nausea and vomiting after administration of anesthetic agent AFTER GALLBLADDER SX Obstructive sleep apnea, adult can't tolerate cpap/upcoming new assessment planned jun 26 2022 Surgical History H/O section History of cardiac cath PR...2014/[place] - NO STENT(S) History of cholecystectomy Family History Mother Dementia Family/Other Obstructive sleep apnea Father Myasthenia gravis Other Family history of colonic polyps Social History Smoking Status: Never smoker Hx Alcohol Use: No Hx Substance Use: No Preferred Language: Serbian Communication Ability: Effective Armor Officer Required: No Beliefs That Will Affect Care: None Current Living Situation: Family Current Living Situation Comment: AND 4 ADULT CHILDREN Other Information That Helps Us Care for You: No Feels Safe at Home: Yes Safety Concerns: Feels Safe At This Time Assistive Devices: None and Hospital Bed Review of Systems Constitutional: no fever and no chills Respiratory: no cough and no dyspnea Cardiovascular: no chest pain Gastrointestinal: + abdominal pain (improving); no blood in stools Physical Exam Constitutional: WD/WN, vitals as above Respiratory: normal respiratory effort Cardiovascular: Rate/Rhythm: regular rate Gastrointestinal (Abdomen): Inspection/Auscultation: abdomen normal to inspection Musculoskeletal: Head/Neck/Chest: normocephalic Psychiatric: Orientation: alert and oriented x 3 Results & Data ([facility]) Vital Signs (Past 12 Hours) Vital Signs Temp Pulse Resp BP Pulse Ox O2 Del Method 08/28/22 07:25 37.0 C 69 16 110/59 L 95 Room Air PG Care Time/CCT Total # of Minutes Spent Total Time Spent with Patient: Total time spent is greater than 50% in coordination of care (as documented) at patient's floor/unit and/or counseling patient: Coding Level of Care Code INP/OBS CONSULT LVL 4, 60 MIN Diagnoses Left sided colitis K51.50 Duodenitis K29.80
[2022-08-28] MEDS: NORMOSOL-R 1,000 ML IV SCH (11:42)
[2022-08-28] MEDS: MoRPHine SULFATE 2 MG/ML CARP IV PRN ×2 (13:37→21:20)
--- NOTE | 2022-08-28 19:48 | Billing Data ---
Date of Service August 28, 2022 Coding Level of Care Code 10952 SUB INP/OBS CARE MIN
[2022-08-28] MEDS: CHOLECALCIFEROL 1,000 UNITS 25 MCG TAB PO SCH (19:58)
[2022-08-28] MEDS: CYANOCOBALAMIN (B-12) 500 MCG TABLET PO SCH (19:58)
--- NOTE | 2022-08-28 22:35 | Billing Data ---
Date of Service August 28, 2022 Coding Level of Care Code INT OBSERVATION CARE 70M LVL 3
[2022-08-29] MEDS: NORMOSOL-R 1,000 ML IV SCH (00:35)
[2022-08-29 07:14] LABS: Hemoglobin 12.4 g/dl (12.0-16.0); Mean Corpuscular Hemoglobin 28.8 pg (25.0-34.0); Mean Corpuscular Hgb Conc 32.6 g/dL (32.0-36.0); Mean Corpuscular Volume 88.4 fL (80.0-100.0); Platelet Count 191 K/uL (130-400); RDW Coefficient of Variation 13.2 % (11.5-14.5); RDW Standard Deviation 43.2 fL (36.4-46.3); White Blood Count 7.71 K/ul (4.8-10.8)
--- NOTE | 2022-08-29 07:35 | Hospitalist Progress Note ---
Date of Service August 29, 2022 Assessment & Plan (1) Left sided colitis: Plan: Ms. Farias is a 56 y/o female with a PMHx of [place], BMI 54.7 with plans for gastric bypass sx, HTN, HLD, metabolic syndrome, asthma and depression who presented to [facility] ED on 08/26 for worsening left-sided abdominal pain, nausea/vomiting, and lack of BMs for 3 days admitted for observation and further workup clinically improving. #Left sided colitis CT A/P with left-sided colitis (moderate wall thickening with adjacent stranding involving ruj-mc-rosist transverse colon, splenic flexure and wlwttwwp-cy-toi descending colon) - similar to CT findings in 09/2019. Multiple possible etiolog ies though most likely infectious colitis as patient is positive for flu A and had f/c/n/v. Initially treat with abx since d/c as likely viral in nature. There were findings consistent with possible ischemic colitis on CT A/P and CTA A&P - no visible clots. Exam is reassuring as patient tender and non-toxic appearing. Initial lactate 2.6, improved to 1. CRP 3.06, ESR - 30, FOBT - positive, procalc itonin < 0.05, stool PCR - negative. Stool calprotectin - pending. Surgery consulted - no urgent operation indicated GI consulted by surgery 09/25 heme+ stool. Rec colonoscopy and endoscopy outpatient in 6 weeks. [] Advance diet as tolerated [] PRN Zofran for nausea [] graduated PRN pain regimen: Tylenol 1g IV Q8H; Morphine 2mg IV Q4H; Dilaudid 0.25mg IV Q6H --> patient not requiring much pain management #Duodenitis Findings per CT A/P - indicative of peptic ulcer disease. Protonix 40 mg PO daily. F/u outpatient with PCP. #HTN Continue home Carvedilol and Lisinopril #HLD Continue home Rosuvastatin #Depression Continue home Effexor #Asthma Continue home inhalers FEN/GI: Advance diet as tolerated DVT Prophylaxis: SCDs, Lovenox 40 mg Q12 SQ Code Status: full code Disposition: med/surg, dispo planning - adequate pain control and tolerating diet (2) Duodenitis: (3) Hypertension: (4) Hyperlipidemia: (5) Depression: (6) Asthma: Admission and Anticipated Discharge Date Admission Date: August 26, 2022 Subjective Patient did not tolerate advancement of diet from clears to full yesterday afternoon. Had increased diarrhea. Tolerating clears. Will slowly advance diet. Review of Systems Review of Systems: See HPI Physical Exam Physical Exam: General: A&Ox3. NAD. Cooperative. Morbidly obese. Non-toxic appearing. HEENT: Atraumatic, normocephalic. Pulm: Decreased breath sounds CTAB A&P. -wheezes, -rales, -rhonchi. Symmetrical chest rise. No increase work of breathing. No respiratory distress. Cardiac: Diminished heart sounds. RRR, -mrg. Radial pulses intact and symmetrical. No LE edema. Abdominal: soft, protuberant but not distended, non-tender, hypoactive BS x 4 Skin: warm, dry, no rash Results & Data Results & Data ([facility]) Vital Signs (Past 12 Hours) Vital Signs Temp Pulse Resp BP Pulse Ox O2 Del Method 08/28/22 19:51 37.1 C 77 16 146/84 H 95 Room Air Laboratory Results 08/29/22 08/29/22 08/28/22 Range/Units 06:49 06:49 08:43 WBC 7.71 (4.8-10.8) K/ul RBC 4.30 (3.93-5.22) M/uL Hgb 12.4 (12.0-16.0) g/dl Hct 38.0 (34.1-44.9) % MCV 88.4 (80.0-100.0) fL MCH 28.8 (25.0-34.0) pg MCHC 32.6 (32.0-36.0) g/dL RDW Std Deviation 43.2 (36.4-46.3) fL RDW Coeff of Neil 13.2 (11.5-14.5) % Plt Count 191 (130-400) K/uL MPV 9.0 L (9.4-12.3) fL Sodium 139 137 (136-145) mmol/L Potassium 3.7 3.6 (3.5-5.1) mmol/L Chloride 105 105 (98-107) mmol/L Carbon Dioxide 29 26 (21-32) mmol/L Anion Gap 5 6 (3-11) BUN 5 L 6 (6-23) mg/dl Creatinine 0.50 L 0.49 L (0.6-1.2) mg/dl Est Cr Clr Drug Dosing 184.1 187.8 ml/min Est GFR ( Amer) 125.4 126.2 ml/min Est GFR (Non-Af Amer) 108.2 108.9 ml/min BUN/Creatinine Ratio 10.0 12.2 (10-20) Glucose 96 110 H (70-99(Fasting)) mg/dl Calcium 7.6 L 7.4 L (8.5-10.1) mg/dl Total Bilirubin 0.4 0.4 (0.2-1.0) mg/dl AST 17 22 (13-39) U/L ALT 17 18 (7-52) U/L Alkaline Phosphatase 56 62 (34-104) U/L Total Protein 6.2 6.1 (6.0-8.3) gm/dl Albumin 3.3 L 3.3 L (3.4-5.0) gm/dl Globulin 2.9 2.8 (2.5-4.0) gm/dl Albumin/Globulin Ratio 1.1 1.2 (0.9-2) 08/28/22 Range/Units 08:43 WBC 5.86 (4.8-10.8) K/ul RBC 4.35 (3.93-5.22) M/uL Hgb 12.4 (12.0-16.0) g/dl Hct 38.5 (34.1-44.9) % MCV 88.5 (80.0-100.0) fL MCH 28.5 (25.0-34.0) pg MCHC 32.2 (32.0-36.0) g/dL RDW Std Deviation 43.8 (36.4-46.3) fL RDW Coeff of Neil 13.4 (11.5-14.5) % Plt Count 194 (130-400) K/uL MPV 9.1 L (9.4-12.3) fL Sodium (136-145) mmol/L Potassium (3.5-5.1) mmol/L Chloride (98-107) mmol/L Carbon Dioxide (21-32) mmol/L Anion Gap (3-11) BUN (6-23) mg/dl Creatinine (0.6-1.2) mg/dl Est Cr Clr Drug Dosing ml/min Est GFR ( Amer) ml/min Est GFR (Non-Af Amer) ml/min BUN/Creatinine Ratio (10-20) Glucose (70-99(Fasting)) mg/dl Calcium (8.5-10.1) mg/dl Total Bilirubin (0.2-1.0) mg/dl AST (13-39) U/L ALT (7-52) U/L Alkaline Phosphatase (34-104) U/L Total Protein (6.0-8.3) gm/dl Albumin (3.4-5.0) gm/dl Globulin (2.5-4.0) gm/dl Albumin/Globulin Ratio (0.9-2) Resident Activity Tracking Resident Involvement: Resident Care Provided Care Provided: Adult [facility]
[2022-08-29 07:42] LABS: Albumin Globulin Ratio 1.1 (0.9-2); Albumin Level 3.3 gm/dl (3.4-5.0); Bilirubin,Total 0.4 mg/dl (0.2-1.0); Calcium 7.6 mg/dl (8.5-10.1); Creatinine Clr Calc Pharmacy 184.1 ml/min; Est GFR (African American) 125.4 ml/min; Est GFR (Non-African American) 108.2 ml/min; Globulin 2.9 gm/dl (2.5-4.0); Potassium 3.7 mmol/L (3.5-5.1); Total Protein 6.2 gm/dl (6.0-8.3)
[2022-08-29] MEDS: carvediloL 6.25 MG TAB PO SCH (08:33)
[2022-08-29] MEDS: OSELTAMIVIR PHOSPHATE 75 MG CAP PO SCH (08:33)
[2022-08-29] MEDS: ASPIRIN 81 MG ECTAB PO SCH (08:34)
[2022-08-29] MEDS: lisinopril 2.5 MG TAB PO SCH (08:34)
[2022-08-29] MEDS: ROSUVASTATIN CALCIUM 10 MG TAB PO SCH (08:34)
[2022-08-29] MEDS: FLUTICASONE FUROATE 100MCG 14 PUFFS/INHALER INH SCH (08:35)
[2022-08-29] MEDS: PANTOprazole 40 MG TAB PO SCH (08:35)
[2022-08-29] MEDS: VENLAFAXINE HCL XR 150 MG CAPXR PO SCH (08:35)
[2022-08-29] MEDS ORDERED: ENOXAPARIN INJ 40 MG/0.4 ML SYR SQ SCH (14:00)
--- NOTE | 2022-08-29 14:54 | Discharge Summary ---
Date of Service August 29, 2022 Admission HPI Per Admitting Provider Ester Farias is a 56yo female with PMHx significant for morbid obesity (BMI 54.7), HTN, HLD, metabolic syndrome, asthma and depression who presented to [facility] ED on 08/26 for worsening left-sided abdominal pain, nausea/vomiting, and lack of BMs for 3 days. Patient reports that she went to [place] [employer] [place] that she has never been too - ate a taco salad; then the next day started to have ljgv-nt-hgiowuzb colicky left-sided abdominal pain with nausea, decreased appetite, no BMs or passing gas, and subjective fever/chills. Of note no one else with her at the restaurant got sick. Then at 12:00 ON 08/25 pain suddenly worsened to severe with associated nausea and NB/NB vomiting. No recent melena/blood/mucus in stools. Did have chronic constipation she has been dealing with before above-mentioned symptoms started. Has not experienced pain like this in the past. Denies chest pain, SOB, dysuria or rash. Has h/o laparoscopic cholecystectomy as well as . Does report several previous episodes of mucus in stools but has never been diagnosed with IBD and did have unremarkable colonoscopy done 4 years ago, with recommendations for repeat study in 10 years. Does report that her father had "a hole in his bowels" that required surgical repair but is unsure if he had IBD diagnosis. Denies h/o dietary intolerance. Patient is a never smoker and denies alcohol/drug use. She is proficient in ADLs/iADLs. In the ED the patient was afebrile and hemodynamically stable on room air. Labs significant for lactate 3.6, and UA SG 1.045. Otherwise CBC/CMP/Mg/Lipase/hsTroponin all WNL. EKG with NSR without ST/T abnormalities. CXR unremarkable. CT A/P with left- sided colitis (moderate wall thickening with adjacent stranding involving snm-lo-vozseb transverse colon, splenic flexure and cudmulsn-qh-odd descending colon) - similar to CT findings in 09/2019. Also with fluid/stranding adjacent to proximal duodenum favoring duodenitis/PUD. No bowel obstruction. Moderate stool burden in colon/rectum. In the ED the patient was given Morphine 4mg IV x2, Zofran 4mg IV, Pepcid 20mg IV, Protonix 40mg PO, Dicyclomine 20mg PO, and NSS 1L bolus. Admission Exam Per Admitting Provider General: A&Ox3. NAD. Cooperative. Morbidly obese. HEENT: Atraumatic, normocephalic. Pulm: CTAB A&P. -wheezes, -rales, -rhonchi. Symmetrical chest rise. No increase work of breathing. No respiratory distress. Cardiac: RRR, -mrg. Radial pulses intact and symmetrical. No LE edema. Abdominal: soft, protuberant but not distended, moderate left abdominal tenderness without guarding/rebound, hypoactive BS x 4 Skin: warm, dry, no rash Principal Diagnosis colitis, influenza A Discharge Exam General: A&Ox3. NAD. Cooperative. Morbidly obese. Non-toxic appearing. HEENT: Atraumatic, normocephalic. Pulm: Decreased breath sounds CTAB A&P. -wheezes, -rales, -rhonchi. Symmetrical chest rise. No increase work of breathing. No respiratory distress. Cardiac: Diminished heart sounds. RRR, -mrg. Radial pulses intact and symmetrical. No LE edema. Abdominal: soft, protuberant but not distended, non-tender, normoactive BS x 4 Skin: warm, dry, no rash Discharge Data Allergies Allergy/AdvReac Type Severity Reaction Status Date / Time latex Allergy Mild ITCHINESS Verified 08/26/22 16:45 adhesive tape Allergy Unknown SKIN Verified 08/26/22 16:45 IRRITATION metronidazole Allergy Unknown PT DOESN'T Verified 08/26/22 16:45 REMEMBER REACTION prochlorperazine Allergy Unknown muscle Verified 08/26/22 16:45 spasms amoxicillin AdvReac Intermediate SEVERE Verified 08/26/22 16:45 YEAST INFECTIONS METAL Allergy Unknown SKIN Uncoded 08/26/22 16:45 IRRITATION WITH EXTENDED USE Consultations 08/26/22 19:16 ED Decision to Admit Stat 08/27/22 00:31 Consult General Surgery Routine 08/27/22 15:15 Consult Gastroenterology Routine Ordered Studies Chest X-Ray 08/26/22 14:48 SINGLE VIEW CHEST CLINICAL HISTORY: Atypical chest pain. FINDINGS: An AP, portable, upright chest radiograph is compared to study dated 06/27/2022. The cardiomediastinal silhouette is unremarkable. The lungs and pleural spaces are clear. No pneumothorax is seen. The bony thorax is grossly intact. IMPRESSION: No active disease in the chest. ACT 112: Negative or not required by law. Electronically signed by: Fernandez Allen M.D. 08/26/2022 3:29 PM Abdomen/Pelvis CT 08/26/22 15:20 CT OF THE ABDOMEN AND PELVIS WITH CONTRAST CLINICAL HISTORY: Left-sided abdominal pain. COMPARISON STUDY: CT of the abdomen and pelvis September 29, 2019. TECHNIQUE: Following IV administration of 114 mL of Optiray, axial images of the abdomen and pelvis were obtained from the lung bases to the proximal femurs. Images were reviewed in the axial, sagittal, and coronal planes. IV contrast was administered without complication. Automated exposure control was utilized for the study. A dose lowering technique was utilized adhering to the principles of ALARA. CT DOSE: 2001.74 mGy.cm FINDINGS: Lung bases are unremarkable. No pneumatosis, free air or portal venous gas is present. There is no biliary ductal dilatation status post cholecystectomy. Note is made of moderate stranding and a small amount of fluid adjacent to the proximal duodenum. There is no extraluminal gas or fluid collection. Spleen, adrenal glands and kidneys are unremarkable with the exception of a 1.2 cm left renal cyst. No hydronephrosis. There is no abdominal or pelvic lymphadenopathy. Sigmoid diverticulosis is noted without evidence for acute diverticulitis. Moderate wall thickening with adjacent stranding involving the mid to distal transverse colon, splenic flexure and proximal to mid descending colon is again noted. Similar findings were shown on CT of September 29, 2019. There is no abscess. There is no free air. No evidence for a bowel obstruction. A moderate amount stool within the colon and rectum is present. The major vasculature is patent. IMPRESSION: 1. Findings consistent with a left-sided colitis, similar to CT of September 29, 2019. Although nonspecific, the appearance raises the possibility of ischemic colitis. 2. Fluid and stranding adjacent to the proximal duodenum. This favors duodenitis/peptic ulcer disease. No free air. No extraluminal gas. 3. No bowel obstruction. Moderate amount of stool within the colon and rectum. ACT 112: Negative or not required by law. Electronically signed by: Hank Acharya M.D. 08/26/2022 5:11 PM Abdomen/Pelvis CTA 08/27/22 05:00 CT angio abdomen pelvis w con CLINICAL HISTORY: 56 years-old Female with ?ischemic colitis acute generalized abdominal pain with reported colitis COMPARISON STUDY: CT abdomen and pelvis 08/26/2022, September 29, 2019. TECHNIQUE: Following the IV administration of 106 cc of Optiray, CT angiogram of the abdomen and pelvis was performed from the lung bases the proximal femora. Images are reviewed in the axial, sagittal, and coronal planes. 3-D MIPS images are created and assessed. All measurements were obtained according to NASCET criteria. IV contrast was administered without complication. A dose lowering technique was utilized adhering to the principles of ALARA. CT DOSE: 1901.69 mGy.cm FINDINGS: CTA: No abdominal aortic aneurysm, dissection or significant atherosclerotic vascular disease. Iliac and imaged femoral arteries appear patent. The celiac trunk, renal arteries, superior and inferior mesenteric arteries appear patent. CT ABDOMEN/PELVIS: The lung bases appear. Clear with mild bronchial wall thickening. No pneumatosis, free air or portal venous gas is present. There is no biliary ductal dilatation status post cholecystectomy. Note is made of moderate stranding and a small amount of fluid adjacent to the proximal duodenum. There is no extraluminal gas or fluid collection. Spleen, adrenal glands and kidneys are unremarkable with the exception of a 1.2 cm left renal cyst. No hydronephrosis. There is no abdominal or pelvic lymphadenopathy. Sigmoid diverticulosis is noted without evidence for acute diverticulitis. Moderate wall thickening with adjacent stranding involving the mid to distal transverse colon, splenic flexure and proximal to mid descending colon is again noted with the degree of wall thickening mildly progressed. Similar findings were seen on the 2019 exam. There is no abscess. There is no free air. No evidence for a bowel obstruction. A moderate amount stool within the colon and rectum is present. Unremarkable soft tissues. No acute fracture identified. IMPRESSION: 1. Findings are again compatible with an acute left-sided colitis, the degree of wall thickening and slightly progressed from yesterday's study. Correlate clinically to exclude ischemic etiology. 2. Unremarkable CTA. 3. Wall thickening of the duodenum with adjacent inflammatory stranding is again suggestive of a nonspecific duodenitis versus peptic ulcer disease. 4. No pneumoperitoneum or abscess. ACT 112: Negative or not required by law. The above report was generated using voice recognition software. It may contain grammatical, syntax or spelling errors. Electronically signed by: Samuel Castaneda M.D. 08/27/2022 8:16 AM 08/29/22 08/29/22 Range/Units 06:49 06:49 WBC 7.71 (4.8-10.8) K/ul RBC 4.30 (3.93-5.22) M/uL Hgb 12.4 (12.0-16.0) g/dl Hct 38.0 (34.1-44.9) % MCV 88.4 (80.0-100.0) fL MCH 28.8 (25.0-34.0) pg MCHC 32.6 (32.0-36.0) g/dL RDW Std Deviation 43.2 (36.4-46.3) fL RDW Coeff of Neil 13.2 (11.5-14.5) % Plt Count 191 (130-400) K/uL MPV 9.0 L (9.4-12.3) fL Sodium 139 (136-145) mmol/L Potassium 3.7 (3.5-5.1) mmol/L Chloride 105 (98-107) mmol/L Carbon Dioxide 29 (21-32) mmol/L Anion Gap 5 (3-11) BUN 5 L (6-23) mg/dl Creatinine 0.50 L (0.6-1.2) mg/dl Est Cr Clr Drug Dosing 184.1 ml/min Est GFR ( Amer) 125.4 ml/min Est GFR (Non-Af Amer) 108.2 ml/min BUN/Creatinine Ratio 10.0 (10-20) Glucose 96 (70-99(Fasting)) mg/dl Calcium 7.6 L (8.5-10.1) mg/dl Total Bilirubin 0.4 (0.2-1.0) mg/dl AST 17 (13-39) U/L ALT 17 (7-52) U/L Alkaline Phosphatase 56 (34-104) U/L Total Protein 6.2 (6.0-8.3) gm/dl Albumin 3.3 L (3.4-5.0) gm/dl Globulin 2.9 (2.5-4.0) gm/dl Albumin/Globulin Ratio 1.1 (0.9-2) Hospital Course (1) Left sided colitis: Ms. Farias is a 56 y/o female with a PMHx of [place], BMI 54.7 with plans for gastric bypass sx, HTN, HLD, metabolic syndrome, asthma and depression who presented to [facility] ED on 08/26 for worsening left-sided abdominal pain, nausea/vomiting, and lack of BMs for 3 days admitted for observation and further workup now clinically improving. #Left sided colitis CT A/P with left-sided colitis (moderate wall thickening with adjacent stranding involving hrm-ue-qhwgay transverse colon, splenic flexure and uyegkqpu-vo-noy descending colon) - similar to CT findings in 09/2019. Multiple possible etiologies though most likely infectious colitis as patient is positive for flu A and had f/c/n/v. Initially treated with abx since d/c as likely viral in nature. There were findings consistent with possible ischemic colitis on CT A/P and CTA A&P - no visible clots. Exam is reassuring as patient tender and non- toxic appearing. Initial lactate 2.6, improved to 1. CRP 3.06, ESR - 30, FOBT - positive, procalcitonin < 0.05, stool PCR - negative. Stool calprotectin - pending. Surgery consulted - no urgent operation indicated. GI consulted by surgery 09/25 heme+ stool. Rec colonoscopy and endoscopy outpatient in 6 weeks. Patient will be stable for discharge once tolerating a diet without pain. #Duodenitis Findings per CT A/P - indicative of peptic ulcer disease. Protonix 40 mg PO daily. F/u outpatient with PCP. #HTN Continue home Carvedilol and Lisinopril #HLD Continue home Rosuvastatin #Depression Continue home Effexor #Asthma Continue home inhalers ___ FEN/GI: Advance diet as tolerated DVT Prophylaxis: SCDs, Lovenox 40 mg Q12 SQ Code Status: full code Disposition: med/surg, dispo planning - adequate pain control and tolerating diet (2) Duodenitis: (3) Hypertension: (4) Hyperlipidemia: (5) Depression: (6) Asthma: Total Time Total Time Spent Total Time Spent (In Minutes): <30 Discharge Plan Discharge Items Patient Disposition: Home - Self-Care Reason For Visit: LEFT-SIDED COLITIS Discharge Diagnosis: colitis, influenza A Activity: Per Instructions section Non-emergency contact: Primary Care Provider and Food Counselor Call non-emergency contact if: your pain is not controlled Follow-up/Referrals: Chetan Beltrán DO [Physician] - Ame Ly CRNP [Primary Care Provider] - Diet: Heart Healthy Addtl Attending Provider Instructions: You were admitted to the hospital for left sided colitis and influenza A. You were treated with pain medications and tamiflu. A discharge summary will be sent to your primary care physician to ensure continuity of care. Please bring this discharge summary with you to your next office appointment so that your provider can review it at that time. Follow-up appointments: We have requested a follow-up appointment with your primary care physician within one week of discharge. Please call their office if you do not hear from them. We have requested a follow-up appointment with your GI physician. Please call their office if you do not hear from them. Keep all your follow-up appointments as already scheduled. If you cannot make an appointment, notify your provider. Medications: Your medication list has been reviewed and reconciled upon discharge to ensure accuracy and continuity of care. An updated list of all your medications is included with your hospital discharge paperwork. Please review this list closely, and make note of any changes. We sent a new medication called Tamiflu to your pharmacy. Take Tamiflu 75mg twice a day for a total of 5 days. If you have any issues filling these prescriptions, please call [phone] and ask to leave a message for Take your medications as instructed; do not skip a dose of your medicines. Make sure all of your doctors know every medicine you are taking (including fpmn-goh-movnqjv medicines, vitamins, and supplements). Call your primary care provider before taking any new medicines (including over- the- counter medicines, vitamins, and supplements), because some of these may interact with your current medications, or may make your symptoms worse. Tell your primary care provider if you cannot afford your medications. CONTACT YOUR PRIMARY CARE PROVIDER if you experience any of the following: Worsening abdominal pain, nausea or vomiting Difficulty following your treatment plan, or difficulty taking medications CALL 911 OR GO TO THE EMERGENCY DEPARTMENT if you experience any of the following: Sudden, severe abdominal pain or nausea/vomiting Severe chest pain, or chest pain that radiates (moves) to your jaw or arm Sudden, severe shortness of breath or difficulty breathing Thank you for allowing us to participate in your care Pending Studies at Discharge: No Stand-Alone Forms: My [facility] [employer], Smoking Cessation Medications and DC Order Prescriptions: New oseltamivir [Tamiflu] 75 mg Capsule 75 mg PO BID Qty: 4 0RF Continued carvedilol 6.25 mg tablet 6.25 mg PO BID Qty: 180 3RF fluticasone propionate 110 mcg/actuation HFA aerosol inhaler 1 puffs inhalation BID PRN (Reason: Wheezing) cyanocobalamin (vitamin B-12) 1,000 mcg tablet 1,000 mcg PO HS cholecalciferol (vitamin D3) 1,000 unit capsule 1,000 units PO HS multivitamin Tablet 1 tab PO QAM albuterol sulfate 90 mcg/actuation HFA aerosol inhaler 1 - 2 puff INHALATION Q4H PRN (Reason: Shortness Of Breath) cyclobenzaprine 10 mg tablet 10 mg PO DAILY PRN (Reason: Muscle Spasm) venlafaxine [Effexor XR] 150 mg capsule,extended release 24hr 150 mg PO QAM aspirin 81 mg Tablet,Delayed Release (Dr/Ec) 81 mg PO QAM zinc sulfate 50 mg zinc (220 mg) Tablet 0 mg PO HS benzonatate 100 mg capsule 100 mg PO UD PRN (Reason: Cough) fluticasone propionate [Flovent HFA] 44 mcg/actuation HFA aerosol inhaler 1 puff INHALATION BID rosuvastatin [Crestor] 10 mg tablet 10 mg PO QAM atorvastatin 40 mg tablet 40 mg PO QAM lisinopril 2.5 mg tablet 2.5 mg PO QAM Saxenda 3 mg/0.5 mL (18 mg/3 mL) Pen Injector 2.4 mg SUBCUT DAILY Discharge Orders: Discharge Order (Routine); Ordered 08/29/22 Ordered By: Sharri Palafox Admission Data Admit Date/Time: 08/29/22 09:12 Attending Provider: Guerrero Neri Admit Provider: Torin New Primary Care Provider: Ame Ly Other Providers: Elian Griffith ; Gagandeep Lundberg ; Florentin Patiño ; Chetan Beltrán ; Lorin Longoria ; Xuan Mcallister ; Barbara Timmons ; Gina Lewis ; Noah Colin ; Sony Carter ; Lucia Danielson ; Carlota Harris ; Johana Brasher ; Maryjane William ; Emy Eldridge ; Debora Bazzi ; Nemo Saunders ; Beltran Hoff ; Delmar Blood ; Sydnee Rios ; Vinay Ponce Jr Other Interventions: Discharge Summary Assessment (RN) Last Done: 08/29/22 18:30 Supervising Physician Co-Signing Physician Notes I personally examined the patient and verified all dior points of history and exam, discussed case, and agree with decision making with Dr Palafox. feeling better feels up to going home pain better Vitals noted, in general she is awake and alert pleasant no distress. HEENT normocephalic atraumatic mucous membranes moist. Abdomen is soft nd nt no masses Abdominal painimproving. Continue supportive care. Stable for home. I suspect this is predominantly flu mediated viral enteritis. (No hematochezia, no pain out of proportion to exam, etc.) improved off abx. Resident Activity Tracking Resident Involvement: Resident Care Provided Care Provided: Adult Hospital Medicine
--- NOTE | 2022-08-30 19:48 | Billing Data ---
Date of Service August 29, 2022 Coding Level of Care Code HOSP INP/OBS DISCH 30 MIN/LESS
== END 2022-08-29 19:00 | disposition home or self-care (01) | DRG 866 ==
LOC: 3W 14:24 → ED 14:24 → SUATTDRO 20:11 → 3W 23:32